=== PATIENT | female | born 1985 | race Caucasian/White ===

== ENCOUNTER 2017-01-22 17:16 | Emergency (ER) | payer BC, OTHER ==
[2017-01-22] MEDS ORDERED: Sodium Chloride 0.9% 1,000 ML IV ONE (17:43)
--- NOTE | 2017-01-22 17:59 | EDM.PDOC ---
ED HPI GENERAL MEDICAL PROBLEM - General Chief Complaint: 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 Problem Stated Complaint: LOW BACK PAIN Time Seen by Provider: 01/22/17 17:52 Source of Information: Reports: Patient History Limitations: Reports: No Limitations - History of Present Illness INITIAL COMMENTS - FREE TEXT/NARRATIVE: History of present illness: [32-year-old female comes in complaining of left-sided flank pain. Patient indicates that he is causing her nausea and difficulty with walking and the discomfort progressively worse K she had gone to an urgent care who thought possibly this could be a kidney stone that did an ultrasound that she has not been able to obtain results and the pain is getting worse. She comes into the ER to be evaluated] Review of systems: As per history of present illness and below otherwise all systems reviewed and negative. Past medical history: As per history of present illness and as reviewed below otherwise noncontributory. Surgical history: As per history of present illness and as reviewed below otherwise noncontributory. Social history: No reported history of drug or alcohol abuse. Family history: As per history of present illness and as reviewed below otherwise noncontributory. Physical exam: HEENT: Atraumatic, normocephalic, pupils reactive, negative for conjunctival pallor or scleral icterus, mucous membranes moist, throat clear, neck supple, nontender, trachea midline. Lungs: Clear to auscultation, breath sounds equal bilaterally, chest nontender. Heart: S1S2, regular, negative for clicks, rubs, or JVD. Abdomen: Soft, nondistended, nontender. Negative for masses or hepatosplenomegaly. Negative for costovertebral tenderness. Pelvis: Stable nontender. 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: Deferred. Rectal: Deferred. Extremities: Atraumatic, negative for cords or calf pain. Neurovascular unremarkable. Neuro: Awake, alert, oriented. Cranial nerves II through XII unremarkable. Cerebellum unremarkable. Motor and sensory unremarkable throughout. Exam nonfocal. Diagnostics: [CBC, CMP, lactic acid UA, hCG] Therapeutics: [IV fluid] Impression: [UTI] Plan: [Antibiotics] Definitive disposition and diagnosis as appropriate pending reevaluation and review of above. Left Low Back Pain Score (Numeric/FACES): 6 - Related Data Allergies Allergy/AdvReac Type Severity Reaction Status Date / Time No Known Allergies Allergy Verified 01/22/17 17:30 Home Meds: Home Meds . [No Known Home Meds] 01/22/17 [History] Past Medical History - Past Health History Medical/Surgical History: Denies Medical/Surgical History Social & Family History - Family History Family Medical History: Noncontributory - Tobacco Use Smoking Status *Q: Never Smoker - Recreational Drug Use Recreational Drug Use: No ED ROS GENERAL - Review of Systems Review Of Systems: See Below (History of present illness) ED EXAM, GENERAL - Physical Exam Exam: See Below (See history of present illness) Course - Vital Signs Last Recorded V/S: Last Vital Signs Temp 36.4 C 01/22/17 19:14 Pulse 84 01/22/17 19:14 Resp 16 01/22/17 19:14 BP 105/71 01/22/17 19:14 Pulse Ox 99 01/22/17 19:14 - Orders/Labs/Meds Orders: Active Orders 24 hr Category Date Time Status Abdomen Pelvis wo Cont [CT] Stat Exams 01/22/17 18:25 Taken Labs: Laboratory Tests 01/22/17 01/22/17 01/22/17 Range/Units 17:25 17:53 17:53 WBC 9.96 (4.0-11.0) K/uL RBC 4.89 (4.30-5.90) M/uL Hgb 15.2 (12.0-16.0) g/dL Hct 45.2 (36.0-46.0) % MCV 92.4 (80.0-98.0) fL MCH 31.1 (27.0-32.0) pg MCHC 33.6 (31.0-37.0) g/dL RDW Std Deviation 41.6 (28.0-62.0) fl RDW Coeff of Santino 12 (11.0-15.0) % Plt Count 320 (150-400) K/uL MPV 9.50 (7.40-12.00) fL Neut % (Auto) 66.6 (48.0-80.0) % Lymph % (Auto) 27.8 (16.0-40.0) % Elliott % (Auto) 4.5 (0.0-15.0) % Eos % (Auto) 0.9 (0.0-7.0) % Baso % (Auto) 0.2 (0.0-1.5) % Neut # (Auto) 6.6 H (1.4-5.7) K/uL Lymph # (Auto) 2.8 H (0.6-2.4) K/uL Elliott # (Auto) 0.5 (0.0-0.8) K/uL Eos # (Auto) 0.1 (0.0-0.7) K/uL Baso # (Auto) 0.0 (0.0-0.1) K/uL Nucleated RBC % 0.0 /100WBC Nucleated RBCs # 0 K/uL Lactate 0.8 (0.20-2.00) mmol/L Sodium (136-146) mmol/L Potassium (3.5-5.1) mmol/L Chloride (98-110) mmol/L Carbon Dioxide (21-31) mmol/L BUN (6.0-23.0) mg/dL Creatinine (0.6-1.5) mg/dL Est Cr Clr Drug Dosing mL/min Estimated GFR (MDRD) ml/min Glucose (60-110) mg/dL Calcium (8.8-10.8) mg/dL Total Bilirubin (0.1-1.5) mg/dL AST (5-40) IU/L ALT (8-54) IU/L Alkaline Phosphatase (40-150) Total Protein (6.0-8.0) g/dL Albumin (3.5-5.0) g/dL Globulin (2.0-3.5) g/dL Albumin/Globulin Ratio (1.3-2.8) HCG, Qual (NEG) Urine Color YELLOW Urine Appearance CLEAR Urine pH 5.5 (5.0-8.0) Ur Specific [place] <= 1.005 (1.001-1.035) Urine Protein NEGATIVE (NEGATIVE) mg/dL Urine Glucose (UA) NEGATIVE (NEGATIVE) mg/dL Urine Ketones NEGATIVE (NEGATIVE) mg/dL Urine Occult Blood TRACE-INTACT (NEGATIVE) Urine Nitrite NEGATIVE (NEGATIVE) Urine Bilirubin NEGATIVE (NEGATIVE) Urine Urobilinogen 0.2 (<2.0) EU/dL Ur Leukocyte Esterase TRACE (NEGATIVE) Urine RBC 0-1 (0-2/HPF) Urine WBC 0-1 (0-5/HPF) Ur Epithelial Cells MODERATE (NONE-FEW) Urine Bacteria OCCASIONAL (NEGATIVE) 01/22/17 01/22/17 Range/Units 17:53 17:53 WBC (4.0-11.0) K/uL RBC (4.30-5.90) M/uL Hgb (12.0-16.0) g/dL Hct (36.0-46.0) % MCV (80.0-98.0) fL MCH (27.0-32.0) pg MCHC (31.0-37.0) g/dL RDW Std Deviation (28.0-62.0) fl RDW Coeff of Santino (11.0-15.0) % Plt Count (150-400) K/uL MPV (7.40-12.00) fL Neut % (Auto) (48.0-80.0) % Lymph % (Auto) (16.0-40.0) % Elliott % (Auto) (0.0-15.0) % Eos % (Auto) (0.0-7.0) % Baso % (Auto) (0.0-1.5) % Neut # (Auto) (1.4-5.7) K/uL Lymph # (Auto) (0.6-2.4) K/uL Elliott # (Auto) (0.0-0.8) K/uL Eos # (Auto) (0.0-0.7) K/uL Baso # (Auto) (0.0-0.1) K/uL Nucleated RBC % /100WBC Nucleated RBCs # K/uL Lactate (0.20-2.00) mmol/L Sodium 140 (136-146) mmol/L Potassium 4.2 (3.5-5.1) mmol/L Chloride 105 (98-110) mmol/L Carbon Dioxide 26 (21-31) mmol/L BUN 15 (6.0-23.0) mg/dL Creatinine 0.9 (0.6-1.5) mg/dL Est Cr Clr Drug Dosing 74.23 mL/min Estimated GFR (MDRD) > 60.0 ml/min Glucose 111 H (60-110) mg/dL Calcium 10.0 (8.8-10.8) mg/dL Total Bilirubin 0.5 (0.1-1.5) mg/dL AST 20 (5-40) IU/L ALT 17 (8-54) IU/L Alkaline Phosphatase 43 (40-150) Total Protein 8.0 (6.0-8.0) g/dL Albumin 4.8 (3.5-5.0) g/dL Globulin 3.2 (2.0-3.5) g/dL Albumin/Globulin Ratio 1.5 (1.3-2.8) HCG, Qual NEGATIVE (NEG) Urine Color Urine Appearance Urine pH (5.0-8.0) Ur Specific [place] (1.001-1.035) Urine Protein (NEGATIVE) mg/dL Urine Glucose (UA) (NEGATIVE) mg/dL Urine Ketones (NEGATIVE) mg/dL Urine Occult Blood (NEGATIVE) Urine Nitrite (NEGATIVE) Urine Bilirubin (NEGATIVE) Urine Urobilinogen (<2.0) EU/dL Ur Leukocyte Esterase (NEGATIVE) Urine RBC (0-2/HPF) Urine WBC (0-5/HPF) Ur Epithelial Cells (NONE-FEW) Urine Bacteria (NEGATIVE) Meds: Medications Discontinued Medications Generic Name Dose Route Start Last Admin Trade Name Natalie PRN Reason Stop Dose Admin Sodium Chloride 1,000 mls @ 999 mls/hr 01/22/17 17:43 01/22/17 17:59 Normal Saline IV 01/22/17 18:43 999 mls/hr STAT ONE Administration Ketorolac Tromethamine 30 mg 01/22/17 18:24 01/22/17 18:32 Toradol IVPUSH 01/22/17 18:25 30 mg ONETIME ONE Administration Departure - Departure Time of Disposition: 20:04 Disposition: Home, Self-Care 01 Condition: Good Clinical Impression: UTI, Urinary tract infectious disease - Discharge Information Instructions: Urinary Tract Infection, Adult, [id number] Forms: ED Department Discharge Additional Instructions: The following information is given to patients seen in the emergency department who are being discharged to home. This information is to outline your options for follow-up care. We provide all patients seen in our emergency department with a follow-up referral. The need for follow-up, as well as the timing and circumstances, are variable depending upon the specifics of your emergency department visit. If you don't have a primary care physician on staff, we will provide you with a referral. We always advise you to contact your personal physician following an emergency department visit to inform them of the circumstance of the visit and for follow-up with them and/or the need for any referrals to a consulting specialist. The emergency department will also refer you to a specialist when appropriate. This referral assures that you have the opportunity for follow-up care with a specialist. All of these measure are taken in an effort to provide you with optimal care, which includes your follow-up. Under all circumstances we always encourage you to contact your private physician who remains a resource for coordinating your care. When calling for follow-up care, please make the office aware that this follow-up is from your recent emergency room visit. If for any reason you are refused follow-up, please contact the [facility] Emergency Department at and asked to speak to the emergency department charge nurse. Continue prescribed antibiotics, hydrate follow-up with primary care 1-2 days Return to ED as needed as discussed - My Orders Last 24 Hours: My Active Orders 01/22/17 18:25 Abdomen Pelvis wo Cont [CT] Stat - Assessment/Plan Last 24 Hours: My Active Orders 01/22/17 18:25 Abdomen Pelvis wo Cont [CT] Stat
[2017-01-22] MEDS ORDERED: Ketorolac 30 MG/ML SDV IVPUSH ONE (18:24)
[2017-01-22 18:28] LABS: CHLORIDE,CL 105 mmol/L (98-110); SODIUM,NA 140 mmol/L (136-146)
[2017-01-22 20:22] VITALS: BP 108/65
--- NOTE | 2017-01-23 16:34 | CT ---
EXAM DATE: 01/22/17 PATIENT'S AGE: 32 Patient: JO-ANN VALENCIA Facility: [place], [place] Site . Site : 1985 Study: CT Abdomen/Pelvis [id number]/6/2017 6:54:34 PM Ordering Physician: Doctor Farnsworth Final Report: INDICATION: LT FLANK PAIN TECHNIQUE: CT abdomen and pelvis without contrast. COMPARISON: None FINDINGS: Lower chest: Unremarkable. Liver: Unremarkable. Spleen: Unremarkable. Pancreas: Unremarkable. Gallbladder and bile ducts: Unremarkable. Kidneys: Unremarkable. No kidney or ureteral stones and no hydronephrosis. Adrenal glands: Unremarkable. GI tract: Moderate amount of stool. Appendix is normal. Vascular structures: Unremarkable. Lymph nodes: Unremarkable. Miscellaneous: Unremarkable. No free air or significant free fluid. Pelvic Organs: IUD in place. Bones: Scattered nonspecific benign appearing sclerotic bone lesions on the imaged proximal femurs bilaterally, acetabulum bilaterally, and right sacral ala. IMPRESSION: No acute abnormality of the abdomen and pelvis. Moderate amount of stool. Dictated by Bryan Smith MD @ 01/22/2017 7:29:54 PM Dictated by: Bryan Smith MD @ 01/22/2017 19:30:08 (Electronic Signature) Report Signed by Proxy. BEST
== END 2017-01-22 20:15 | disposition home or self-care (01) ==
LOC: MW.ED 17:16
DX: N39.0 Urinary tract infection, site not specified (principal)
CPT/HCPCS: 36415; 74176; 80053; 81001; 83605; 84703; 85025; 96361; 96374; 99284; J1885; J7040

== ENCOUNTER 2017-04-09 09:13 | Day surgery (SDC) | payer BC ==
[~2017-04-09 09:13] MED LIST: Lactated Ringers 1,000 ML IV SCH; Midazolam 1 MG/ML 2 ML SDV ONE; Propofol 200 MG/20 ML SDV ONE; Sodium Chloride 0.9% 10 ML Syringe FLUSH PRN; Sodium Chloride 0.9% 2.5 ML Syringe FLUSH PRN
--- NOTE | 2017-04-09 10:07 | PCM.PREANE ---
Preanesthetic Assessment - Anesthesia/Transfusion/Family Hx Anesthesia History: Prior Anesthesia Without Reaction Family History of Anesthesia Reaction: No Transfusion History: No Prior Transfusion(s) Intubation History: Unknown - Review of Systems General: No Symptoms Pulmonary: No Symptoms Cardiovascular: No Symptoms Gastrointestinal: No Symptoms Neurological: No Symptoms Other: Reports: None - Physical Assessment NPO Status Date: 04/09/17 NPO Status Time: 01:00 O2 Sat by Pulse Oximetry: 100 Respiratory Rate: 16 Vital Signs: Last Vital Signs Temp 37.1 C 04/09/17 09:55 Pulse 71 04/09/17 09:55 Resp 16 04/09/17 09:55 BP 100/69 04/09/17 09:55 Pulse Ox 100 04/09/17 09:55 Height: 1.6 m Weight: 60.781 kg ASA Class: 1 Mental Status: Alert & Oriented x3 Airway Class: Mallampati = 2 Dentition: Reports: Normal Dentition Thyro-Mental Finger Breadths: 3 Mouth Opening Finger Breadths: 3 ROM/Head Extension: Full Lungs: Clear to Auscultation, Normal Respiratory Effort Cardiovascular: Regular Rate, Regular Rhythm - Allergies Allergies/Adverse Reactions: Allergies Allergy/AdvReac Type Severity Reaction Status Date / Time No Known Allergies Allergy Verified 01/22/17 17:30 - Blood Blood Available: No - Anesthesia Plan Pre-Op Medication Ordered: None - Acknowledgements Anesthesia Type Planned: MAC Pt an Appropriate Candidate for the Planned Anesthesia: Yes Alternatives and Risks of Anesthesia Discussed w Pt/Guardian: Yes Pt/Guardian Understands and Agrees with Anesthesia Plan: Yes PreAnesthesia Questionnaire - Past Health History Medical/Surgical History: Denies Medical/Surgical History HEENT History: Reports: Other (See Below) Other HEENT History: wears glasses/contacts Gastrointestinal History: Reports: Hemorrhoids, Irritable Bowel Syndrome, Other (See Below) Other Gastrointestinal History: occasional heartburn 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: Psychiatric History: Reports: Anxiety - Past Surgical History Head Surgeries/Procedures: Reports: None HEENT Surgical History: Reports: Adenoidectomy, Naso-Sinus Surgery, Oral Surgery , Tonsillectomy GI Surgical History: Reports: Colonoscopy (at age 18) - SUBSTANCE USE Smoking Status *Q: Never Smoker Recreational Drug Use History: No - HOME MEDS Home Medications: Home Meds LORazepam [Ativan] 0.5 mg PO ASDIRECTED PRN 04/07/17 [History] - CURRENT (IN HOUSE) MEDS Current Meds: Current Medications Lactated Ringer's (Ringers, Lactated) 1,000 mls @ 125 mls/hr IV ASDIRECTED HANK Last Admin: 04/09/17 09:56 Dose: 125 mls/hr Sodium Chloride (Saline Flush) 10 ml FLUSH ASDIRECTED PRN PRN Reason: Keep Vein Open Sodium Chloride (Saline Flush) 2.5 ml FLUSH ASDIRECTED PRN PRN Reason: Keep Vein Open Discontinued Medications Lidocaine HCl (Xylocaine-Mpf 1%) Confirm Administered Dose 5 ml .ROUTE .STK-MED ONE Stop: 04/09/17 07:19 Midazolam HCl (Versed 1 Mg/Ml) Confirm Administered Dose 2 mg .ROUTE .STK-MED ONE Stop: 04/09/17 07:19 Propofol (Diprivan 20 Ml) Confirm Administered Dose 400 mg .ROUTE .STK-MED ONE Stop: 04/09/17 07:19
--- NOTE | 2017-04-09 11:02 | PCM.OPNOTE ---
- General Post-Op/Procedure Note Date of Surgery/Procedure: 04/09/17 Operative Procedure(s): Screening colon Findings: Grade 2 hemorrhoids Pre Op Diagnosis: Bright red bleeding per rectum Post-Op Diagnosis: Grade 2 hemorrhoids Anesthesia Technique: MAC Primary Surgeon: Marli Bowman Condition: Good
[2017-04-09 11:33] VITALS: BP 92/63
--- NOTE | 2017-04-09 19:13 | OR ---
SURGEON: MARLI BOWMAN MD DATE OF PROCEDURE: 04/09/2017 PREOPERATIVE DIAGNOSIS: Bright red bleeding per rectum. POSTOPERATIVE DIAGNOSIS: Grade 2 internal hemorrhoids. PROCEDURE PERFORMED: Diagnostic colonoscopy. ENDOSCOPIST: Dr. Marli Bowman. INSTRUMENT USED: Olympus colonoscope. ANESTHESIA: MAC. EXTENT OF EXAM: To the cecum. PREPARATION: Good. LIMITATIONS: None. INDICATION FOR EXAMINATION: The patient is a 32-year-old female with a strong family history of colon cancer, who presents with bright red bleeding per rectum. Given her family history, the decision was made to perform a diagnostic colonoscopy. We discussed the procedure as well as expected perioperative course. We discussed the risks, including bleeding, infection, damage to surrounding structures, including perforation. The patient verbalized understanding and wished to proceed. PROCEDURE IN DETAIL: The patient was brought to the endoscopy suite and placed on OR cart in left lateral decubitus position. A time-out was completed verifying the patient's name, age, date of , allergies, and procedure to be performed. Monitored anesthesia care was induced and continuous oxygen was provided via nasal cannula throughout the procedure. After adequate sedation was achieved, a digital rectal exam was performed. This exam was within normal limits. A well lubricated colonoscope was inserted into the rectum and advanced under direct visualization to the level of cecum. The cecum was identified by both visual and anatomic landmarks. A photograph was taken of the cecal cap as well with the scope retroflexed within the cecum. The scope was then straightened out and fully withdrawn while examining the color, texture, anatomy, and integrity of the mucosa from the cecum to the anal canal. The colon appeared normal. The scope was then brought into the rectum and retroflexed to allow visualization of the anal canal opening. The patient was noted to have hypertrophied hemorrhoidal tissue around the anal canal consistent with grade 2 internal hemorrhoids. The scope was then straightened out and withdrawn from the patient. Cecum to anus time was 7 minutes. The patient tolerated the procedure well and was taken to PACU in stable condition. ENDOSCOPIC DIAGNOSIS: Grade 2 hemorrhoids. RECOMMENDATIONS: Follow up in clinic in 2 weeks. ELVIS HOLLINS /[id number]
== END 2017-04-09 11:40 | disposition home or self-care (01) ==
LOC: MW.SDS 09:13
PROVIDERS: ATTEND Surgery
PROC: 0DJD8ZZ Inspection of Lower Intestinal Tract, Via Natural or Artificial Opening Endoscopic (ICD-10-PCS; principal; 2017-04-09)
DX: K64.1 Second degree hemorrhoids (principal); L90.5 Scar conditions and fibrosis of skin; Z79.899 Other long term (current) drug therapy; K58.9 Irritable bowel syndrome, unspecified; Z98.890 Other specified postprocedural states
CPT/HCPCS: 45378; 81025; J2250; J7120; J2704

== ENCOUNTER 2019-06-17 05:56 | Emergency (ER) | payer BC ==
[2019-06-17] MEDS ORDERED: Albuterol/Ipratropium 3.0-0.5 MG/3 ML Neb Soln ONE (05:59)
[2019-06-17] MEDS ORDERED: Albuterol/Ipratropium 3.0-0.5 MG/3 ML Neb Soln NEB ONE (06:01)
--- NOTE | 2019-06-17 06:17 | EDM.PDOC ---
ED HPI GENERAL MEDICAL PROBLEM - General Chief Complaint: Respiratory Problem Stated Complaint: TROUBLE BREATHING, 26 WKS PREG Time Seen by Provider: 06/17/19 06:14 - History of Present Illness INITIAL COMMENTS - FREE TEXT/NARRATIVE: HISTORY AND PHYSICAL: History of present illness: Patient 34-year-old white female is 26 weeks presents with substernal cough and shortness of breath she states she's had some coughing over last several weeks with the shortness of breath became worse tonight. There's been no fever chills nausea vomiting she does report asthma in childhood denies as adult. She denies abdominal pain cramping or vaginal bleeding Review of systems: As per history of present illness and below otherwise all systems reviewed and negative. Past medical history: As per history of present illness and as reviewed below otherwise noncontributory. Surgical history: As per history of present illness and as reviewed below otherwise noncontributory. Social history: No reported history of drug or alcohol abuse. Family history: As per history of present illness and as reviewed below otherwise noncontributory. Physical exam: HEENT: Atraumatic, normocephalic, pupils reactive, negative for conjunctival pallor or scleral icterus, mucous membranes moist, throat clear, neck supple, nontender, trachea midline. Lungs: Diminished, breath sounds equal bilaterally, chest nontender. Heart: S1S2, regular, negative for clicks, rubs, or JVD. Abdomen: Soft, gravid uterus consistent with dates, nontender. Negative for masses or hepatosplenomegaly. Negative for costovertebral tenderness. Pelvis: Stable nontender. 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: Deferred. Rectal: Deferred. Extremities: Atraumatic, negative for cords or calf pain. Neurovascular unremarkable. Neuro: Awake, alert, oriented. Cranial nerves II through XII unremarkable. Cerebellum unremarkable. Motor and sensory unremarkable throughout. Exam nonfocal. Diagnostics: CBC CMP influenza screen chest x-ray heart Therapeutics: Albuterol ipratropium nebulizer Impression: #1 tracheobronchitis #2 26 week intrauterine Definitive disposition and diagnosis as appropriate pending reevaluation and review of above. - Related Data Allergies Allergy/AdvReac Type Severity Reaction Status Date / Time No Known Allergies Allergy Verified 01/22/17 17:30 Home Meds: Home Meds Pnv No.103/Folic/Om3s/Fish Oil [ Gummies] 1 each PO DAILY 06/17/19 [ History] Past Medical History - Past Health History Medical/Surgical History: Denies Medical/Surgical History HEENT History: Reports: Other (See Below) Other HEENT History: wears glasses/contacts Cardiovascular History: Reports: None Respiratory History: Reports: None Gastrointestinal History: Reports: Hemorrhoids, Irritable Bowel Syndrome, Other (See Below) Other Gastrointestinal History: occasional heartburn 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 History: Reports: None 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: 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 History: Reports: None Psychiatric History: Reports: Anxiety Endocrine/Metabolic History: Reports: None - Infectious Disease History Infectious Disease History: Reports: None - Past Surgical History Head Surgeries/Procedures: Reports: None HEENT Surgical History: Reports: Adenoidectomy, Naso-Sinus Surgery, Oral Surgery , Tonsillectomy GI Surgical History: Reports: Colonoscopy Social & Family History - Family History Family Medical History: Noncontributory - Tobacco Use Smoking Status *Q: Never Smoker - Recreational Drug Use Recreational Drug Use: No ED ROS GENERAL - Review of Systems Review Of Systems: Comprehensive ROS is negative, except as noted in HPI. ED EXAM, GENERAL - Physical Exam Exam: See Below (See dictation) Course - Vital Signs Last Recorded V/S: Last Vital Signs Temp 36.4 C 06/17/19 06:08 Pulse 84 06/17/19 06:08 Resp 20 06/17/19 06:08 BP 114/70 06/17/19 06:08 Pulse Ox 100 06/17/19 06:08 - Orders/Labs/Meds Orders: Active Orders 24 hr Category Date Time Status RT Aerosol Therapy [RC] ASDIRECTED Care 06/17/19 06:01 Active COMPREHENSIVE METABOLIC PN,CMP [CHEM] Stat Lab 06/17/19 06:32 Received INFLUENZA A+B AG SCREEN [RM] Stat Lab 06/17/19 06:04 Received Labs: Laboratory Tests 06/17/19 Range/Units 06:32 WBC 6.95 (4.0-11.0) K/uL RBC 3.88 L (4.30-5.90) M/uL Hgb 12.0 (12.0-16.0) g/dL Hct 37.5 (36.0-46.0) % MCV 96.6 (80.0-98.0) fL MCH 30.9 (27.0-32.0) pg MCHC 32.0 (31.0-37.0) g/dL RDW Std Deviation 47.3 (28.0-62.0) fl RDW Coeff of Santino 14 (11.0-15.0) % Plt Count 183 (150-400) K/uL MPV 9.70 (7.40-12.00) fL Neut % (Auto) 58.7 (48.0-80.0) % Lymph % (Auto) 28.1 (16.0-40.0) % [place] % (Auto) 11.5 (0.0-15.0) % Eos % (Auto) 1.6 (0.0-7.0) % Baso % (Auto) 0.1 (0.0-1.5) % Neut # (Auto) 4.1 (1.4-5.7) K/uL Lymph # (Auto) 2.0 (0.6-2.4) K/uL [place] # (Auto) 0.8 (0.0-0.8) K/uL Eos # (Auto) 0.1 (0.0-0.7) K/uL Baso # (Auto) 0.0 (0.0-0.1) K/uL Nucleated RBC % 0.0 /100WBC Nucleated RBCs # 0 K/uL Meds: Medications Discontinued Medications Generic Name Dose Route Start Last Admin Trade Name Freq PRN Reason Stop Dose Admin Albuterol/Ipratropium Confirm 06/17/19 05:59 06/17/19 06:03 Duoneb 3.0-0.5 Mg/3 Ml Administered 06/17/19 06:00 Not Given Dose 3 ml .ROUTE .STK-MED ONE Albuterol/Ipratropium 3 ml 06/17/19 06:01 06/17/19 06:03 Duoneb 3.0-0.5 Mg/3 Ml NEB 06/17/19 06:02 3 ml ONETIME ONE Administration Departure - Departure Time of Disposition: 06:53 Disposition: Home, Self-Care 01 Condition: Good Clinical Impression: Tracheobronchitis, Second trimester - Discharge Information Forms: ED Department Discharge Additional Instructions: The following information is given to patients seen in the emergency department who are being discharged to home. This information is to outline your options for follow-up care. We provide all patients seen in our emergency department with a follow-up referral. The need for follow-up, as well as the timing and circumstances, are variable depending upon the specifics of your emergency department visit. If you don't have a primary care physician on staff, we will provide you with a referral. We always advise you to contact your personal physician following an emergency department visit to inform them of the circumstance of the visit and for follow-up with them and/or the need for any referrals to a consulting specialist. The emergency department will also refer you to a specialist when appropriate. This referral assures that you have the opportunity for followup care with a specialist. All of these measure are taken in an effort to provide you with optimal care, which includes your followup. Under all circumstances we always encourage you to contact your private physician who remains a resource for coordinating your care. When calling for followup care, please make the office aware that this follow-up is from your recent emergency room visit. If for any reason you are refused follow-up, please contact the [facility] emergency department at and asked to speak to the emergency department charge nurse. Z-Huber Medrol albuterol as prescribed follow-up primary medical doctor as needed as discussed and return as needed as discussed - My Orders Last 24 Hours: My Active Orders 06/17/19 06:01 RT Aerosol Therapy [RC] ASDIRECTED 06/17/19 06:04 INFLUENZA A+B AG SCREEN [RM] Stat 06/17/19 06:32 COMPREHENSIVE METABOLIC PN,CMP [CHEM] Stat - Assessment/Plan Last 24 Hours: My Active Orders 06/17/19 06:01 RT Aerosol Therapy [RC] ASDIRECTED 06/17/19 06:04 INFLUENZA A+B AG SCREEN [RM] Stat 06/17/19 06:32 COMPREHENSIVE METABOLIC PN,CMP [CHEM] Stat
--- NOTE | 2019-06-17 06:47 | CR ---
INDICATION: Shortness of breath TECHNIQUE: Chest 1 view COMPARISON: None FINDINGS: Cardiovascular and mediastinum: Heart size and vasculature are normal in caliber and appearance. Lungs and pleural spaces: Lungs are clear. No sign of infiltrate or mass. No sign of pleural effusion. No pneumothorax. Bones and soft tissues: No significant findings. IMPRESSION: Normal chest. Dictated by Jaron Watkins MD @ Jun 17 2019 6:44AM Signed by Dr. Jaron Watkins @ Jun 17 2019 6:45AM
[2019-06-17 07:01] LABS: BLOOD UREA NITROGEN,BUN 8 mg/dL (7.0-18.0); CHLORIDE,CL 104 mmol/L (98-107); GLUCOSE RANDOM 103 mg/dL (74-106); POTASSIUM,K 3.5 mmol/L (3.5-5.1); SODIUM,NA 139 mmol/L (136-145)
[2019-06-17 07:44] VITALS: BP 106/58; PULSE 100
== END 2019-06-17 07:29 | disposition home or self-care (01) ==
LOC: MW.ED 05:56
DX: O99.512 Diseases of the respiratory system complicating pregnancy, second trimester (principal); J40 Bronchitis, not specified as acute or chronic; Z3A.26 26 weeks gestation of pregnancy
CPT/HCPCS: 36415; 71045; 71045-26; 80053; 85025; 87804; 94640; 99283; 99285-25; J7620-GY

== ENCOUNTER 2019-09-19 05:14 | Inpatient (IN) | payer BC ==
[2019-09-19] MEDS ORDERED: Nalbuphine 10 MG/1 ML Vial IVPUSH PRN (05:45)
[2019-09-19] MEDS ORDERED: Water For Irrigation,Sterile 1,000 ML Container IRR PRN (05:45)
[2019-09-19] MEDS ORDERED: Carboprost Tromethamine 250 MCG/1 ML Amp IM PRN (05:45)
[2019-09-19] MEDS ORDERED: Oxytocin/0.9 % Sodium Chloride 30 UNIT/500 ML BAG IV SCH ×2 (05:45→07:00)
[2019-09-19] MEDS ORDERED: Sodium Chloride 0.9% 2.5 ML Syringe FLUSH PRN (05:45)
[2019-09-19] MEDS ORDERED: Sodium Chloride 0.9% 10 ML SDV IV PRN (05:45)
[2019-09-19] MEDS ORDERED: Misoprostol 200 MCG Tab PO PRN (05:45)
[2019-09-19] MEDS ORDERED: Butorphanol 1 MG/ML SDV IVPUSH PRN (05:45)
[2019-09-19] MEDS ORDERED: Lidocaine 1% 50 ML MDV INJECT PRN (05:45)
[2019-09-19] MEDS ORDERED: Methylergonovine 0.2 MG/1 ML Amp IM PRN (05:45)
[2019-09-19] MEDS ORDERED: Sodium Chloride 0.9% 10 ML Syringe FLUSH PRN (05:45)
[2019-09-19] MEDS ORDERED: Tranexamic Acid 1,000 MG in Sodium Chloride 0.9% 100 ML IV PRN (05:45)
[2019-09-19] MEDS ORDERED: Ampicillin 2 GM in Sodium Chloride 0.9% 100 ML IV ONE (06:00)
[2019-09-19] MEDS: Lactated Ringers 1,000 ML IV SCH ×3 (06:19→15:22)
--- NOTE | 2019-09-19 06:47 | US ---
Limited obstetrical ultrasound: Multiple real-time images were obtained for position. presentation: Cephalic Heart rate: 137 BPM Amniotic fluid: LUIS 10.14 cm Impression: 1. Cephalic presentation. Diagnostic code #1 This report was dictated in [place] Standard Time
[2019-09-19] MEDS ORDERED: Terbutaline 1 MG/ML SDV SUBCUT PRN (06:58)
[2019-09-19] MEDS ORDERED: Ampicillin 1 GM in Sodium Chloride 0.9% 50 ML IV SCH ×2 (10:00→10:30)
[2019-09-19] MEDS ORDERED: Ampicillin 1 GM Vial ONE (10:37)
[2019-09-19] MEDS: Ampicillin 1 GM in Sodium Chloride 0.9% 50 ML IV SCH ×3 (10:48→18:22)
[2019-09-19] MEDS ORDERED: ePHEDrine 50 MG/ML SDV ONE (15:03)
--- NOTE | 2019-09-19 15:19 | PCM.PREANE ---
Preanesthetic Assessment - Anesthesia/Transfusion/Family Hx Anesthesia History: Prior Anesthesia Without Reaction Transfusion History: No Prior Transfusion(s) Intubation History: Unknown - Review of Systems General: No Symptoms Pulmonary: No Symptoms Cardiovascular: No Symptoms Gastrointestinal: No Symptoms Neurological: No Symptoms Other: Reports: None - Physical Assessment Height: 5 ft 2.75 in Weight: 75.75 kg ASA Class: 2 Mental Status: Alert & Oriented x3 Airway Class: Mallampati = 2 Dentition: Reports: Normal Dentition Thyro-Mental Finger Breadths: 3 Mouth Opening Finger Breadths: 3 ROM/Head Extension: Full Lungs: Clear to Auscultation, Normal Respiratory Effort Cardiovascular: Regular Rate, Regular Rhythm - Lab Values: Laboratory Last Values WBC 6.21 K/uL (4.0-11.0) 09/19/19 06:25 RBC 3.70 M/uL (4.30-5.90) L 09/19/19 06:25 Hgb 11.4 g/dL (12.0-16.0) L 09/19/19 06:25 Hct 35.5 % (36.0-46.0) L 09/19/19 06:25 MCV 95.9 fL (80.0-98.0) 09/19/19 06:25 MCH 30.8 pg (27.0-32.0) 09/19/19 06:25 MCHC 32.1 g/dL (31.0-37.0) 09/19/19 06:25 RDW Std Deviation 49.2 fl (28.0-62.0) 09/19/19 06:25 RDW Coeff of Santino 14 % (11.0-15.0) 09/19/19 06:25 Plt Count 195 K/uL (150-400) 09/19/19 06:25 MPV 9.70 fL (7.40-12.00) 09/19/19 06:25 Nucleated RBC % 0.0 /100WBC 09/19/19 06:25 Nucleated RBCs # 0 K/uL 09/19/19 06:25 Blood Type A NEGATIVE 09/19/19 06:25 Antibody Screen POSITIVE 09/19/19 06:25 Antibody Identification Anti-D 09/19/19 06:25 - Allergies Allergies/Adverse Reactions: Allergies Allergy/AdvReac Type Severity Reaction Status Date / Time No Known Allergies Allergy Verified 01/22/17 17:30 - Anesthesia Plan Free Text/Narrative:: Continuous Labor Epidural - Acknowledgements Anesthesia Type Planned: Epidural Pt an Appropriate Candidate for the Planned Anesthesia: Yes Alternatives and Risks of Anesthesia Discussed w Pt/Guardian: Yes Pt/Guardian Understands and Agrees with Anesthesia Plan: Yes PreAnesthesia Questionnaire - Past Health History Medical/Surgical History: Denies Medical/Surgical History HEENT History: Reports: Impaired Vision, Other (See Below) Other HEENT History: wears glasses/contacts Cardiovascular History: Reports: None Respiratory History: Reports: None Gastrointestinal History: Reports: Hemorrhoids, Irritable Bowel Syndrome, Other (See Below) Other Gastrointestinal History: occasional heartburn 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 History: Reports: None 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 LMP (Approximate): 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 History: Reports: None Neurological History: Reports: Concussion Psychiatric History: Reports: Anxiety, Depression Endocrine/Metabolic History: Reports: None Hematologic History: Reports: None Immunologic History: Reports: None Oncologic (Cancer) History: Reports: None Dermatologic History: Reports: None - Infectious Disease History Infectious Disease History: Reports: Chicken Pox, Human Papilloma Virus (HPV), Influenza, Mononucleosis - Past Surgical History Head Surgeries/Procedures: Reports: None HEENT Surgical History: Reports: Adenoidectomy, Naso-Sinus Surgery, Oral Surgery , Tonsillectomy GI Surgical History: Reports: Colonoscopy - SUBSTANCE USE Smoking Status *Q: Never Smoker Second Hand Smoke Exposure: No Recreational Drug Use History: No - HOME MEDS Home Medications: Home Meds Pnv No.103/Folic/Om3s/Fish Oil [ Gummies] 1 each PO DAILY 06/17/19 [ History] Calcium Carb, Citrate/Vit D3 [Calcium + D3 ER Tablet] 1 tab PO DAILY 09/19/19 [ History] Cholecalciferol (Vitamin D3) [Vitamin D3] 1 tab PO DAILY 09/19/19 [History] Iron,Carbonyl/Ascorbic Acid [Iron 100-Vitamin C Tablet] 1 each PO DAILY [History] L.acidoph,Paracasei, B.lactis [Probiotic] 1 tab PO DAILY 09/19/19 [History] Magnesium Amino Acid Chelate [Magnesium] 1 tab PO DAILY 09/19/19 [History] - CURRENT (IN HOUSE) MEDS Current Meds: Current Medications Butorphanol Tartrate (Stadol) 1 mg IVPUSH Q1H PRN PRN Reason: Pain Carboprost Tromethamine (Hemabate Ds) 250 mcg IM ASDIRECTED PRN PRN Reason: Post Hemorrhage Lactated Ringer's (Ringers, Lactated) 1,000 mls @ 150 mls/hr IV ASDIRECTED HANK Last Admin: 09/19/19 14:19 Dose: 999 mls/hr Oxytocin/Sodium Chloride (Oxytocin 30 Unit/500 Ml-Ns) 30 unit in 500 mls @ 500 mls/hr IV TITRATE HANK Tranexamic Acid 1,000 mg/ (Sodium Chloride) 110 mls @ 660 mls/hr IV ONETIME PRN PRN Reason: Bleeding Oxytocin/Sodium Chloride (Oxytocin 30 Unit/500 Ml-Ns) 30 unit in 500 mls @ 2 mls/hr IV TITRATE HANK; Protocol Last Titration: 09/19/19 13:03 Dose: 18 munits/min, 18 mls/hr Ampicillin Sodium 1 gm/ Sodium (Chloride) 50 mls @ 100 mls/hr IV Q4H [facility] Last Admin: 09/19/19 14:45 Dose: 100 mls/hr Lidocaine HCl (Xylocaine 1%) 50 ml INJECT ONETIME PRN PRN Reason: Laceration repair Methylergonovine Maleate (Methergine) 0.2 mg IM ASDIRECTED PRN PRN Reason: Post Hemorrhage Misoprostol (Cytotec) 200 mcg PO ONETIME PRN PRN Reason: Post Hemorrhage Nalbuphine HCl (Nubain) 10 mg IVPUSH Q1H PRN PRN Reason: Pain (severe 7-10) Sodium Chloride (Saline Flush) 10 ml FLUSH ASDIRECTED PRN PRN Reason: Keep Vein Open Sodium Chloride (Saline Flush) 2.5 ml FLUSH ASDIRECTED PRN PRN Reason: Keep Vein Open Sodium Chloride (Normal Saline) 10 ml IV ASDIRECTED PRN PRN Reason: IV Use Sterile Water (Sterile Water For Irrigation) 1,000 ml IRR ASDIRECTED PRN PRN Reason: delivery Terbutaline Sulfate (Brethine) 0.25 mg SUBCUT ASDIRECTED PRN PRN Reason: Tacysystole Discontinued Medications Ampicillin Sodium (Ampicillin) Confirm Administered Dose 1 gm .ROUTE .STK-MED ONE Stop: 09/19/19 10:38 Ephedrine Sulfate (Ephedrine Sulfate) Confirm Administered Dose 50 mg .ROUTE .STK-MED ONE Stop: 09/19/19 15:04 Ampicillin Sodium 2 gm/ Sodium (Chloride) 100 mls @ 200 mls/hr IV ONETIME ONE Stop: 09/19/19 06:29 Last Admin: 09/19/19 06:19 Dose: 200 mls/hr Ampicillin Sodium 1 gm/ Sodium (Chloride) 50 mls @ 100 mls/hr IV Q4H HANK Ampicillin Sodium 1 gm/ Sodium (Chloride) 50 mls @ 100 mls/hr IV Q4H HANK Fentanyl/Bupivacaine HCl (Uqhzryws-Wbjls-Yo 2 Mcg/Ml-0.125%) Confirm Administered Dose 100 mls @ as directed .ROUTE .ST-MED ONE Stop: 09/19/19 14:20
[2019-09-19] MEDS ORDERED: Lanolin 100% Cream 7 GM Tube TOP PRN (21:39)
[2019-09-19] MEDS ORDERED: Benzocaine/Menthol 20%-0.5% Spray 78 GM Cannister TOP PRN (21:39)
[2019-09-19] MEDS ORDERED: Bisacodyl 10 MG Supp RECTAL PRN (21:39)
[2019-09-19] MEDS ORDERED: Docusate Sodium 100 MG Cap PO PRN (21:39)
[2019-09-19] MEDS ORDERED: Witch Hazel Medicated Pads 40/Jar TOP PRN (21:39)
[2019-09-19] MEDS ORDERED: oxyCODONE 5 MG Tab PO PRN (21:39)
[2019-09-19] MEDS ORDERED: Acetaminophen 500 MG Tab PO PRN (21:39)
--- NOTE | 2019-09-19 21:45 | PCM.DEL ---
L & D Note - General Info Date of Service: 09/19/19 Mother's Due Date: 09/24/19 - Delivery Note Labor: Induced by Oxytocin Delivery Outcome: Stillbirth Delivery Method: Spontaneous Vaginal Delivery-Single Presentation: Vertex Nuchal Cord: None Anesthesia Type: Epidural Amniotic Fluid Description: Clear Episiotomy Type: None Laceration: Sulcus (left) Suture type: Vicryl Suture size: 2-0 Placenta: Intact, Spontaneous Cord: 3 Vessels Resuscitation Needed: No Score 1 min: 8 Score 5 min: 9 - General Info Date of Service: 09/19/19 - Patient Data Weight - Most Recent: 75.75 kg Lab Results Last 24 Hours: Laboratory Results - last 24 hr 09/19/19 09/19/19 Range/Units 06:25 06:25 WBC 6.21 (4.0-11.0) K/uL RBC 3.70 L (4.30-5.90) M/uL Hgb 11.4 L (12.0-16.0) g/dL Hct 35.5 L (36.0-46.0) % MCV 95.9 (80.0-98.0) fL MCH 30.8 (27.0-32.0) pg MCHC 32.1 (31.0-37.0) g/dL RDW Std Deviation 49.2 (28.0-62.0) fl RDW Coeff of Santino 14 (11.0-15.0) % Plt Count 195 (150-400) K/uL MPV 9.70 (7.40-12.00) fL Nucleated RBC % 0.0 /100WBC Nucleated RBCs # 0 K/uL Blood Type A NEGATIVE Antibody Screen POSITIVE Antibody Identification Anti-D Med Orders - Current: Current Medications Acetaminophen (Tylenol Extra Strength) 1,000 mg PO Q6H PRN PRN Reason: Pain Benzocaine/Menthol (Dermoplast Pain Relief 20%-0.5% Waldron) 78 gm TOP ASDIRECTED PRN PRN Reason: Perineal Comfort Measure Bisacodyl (Dulcolax) 10 mg RECTAL ONETIME PRN PRN Reason: Constipation Butorphanol Tartrate (Stadol) 1 mg IVPUSH Q1H PRN PRN Reason: Pain Carboprost Tromethamine (Hemabate Ds) 250 mcg IM ASDIRECTED PRN PRN Reason: Post Hemorrhage Docusate Sodium (Colace) 100 mg PO BID PRN PRN Reason: Constipation Emollient Ointment (Lansinoh Hpa) 0 gm TOP ASDIRECTED PRN PRN Reason: Sore Nipples Lactated Ringer's (Ringers, Lactated) 1,000 mls @ 150 mls/hr IV ASDIRECTED HANK Last Admin: 09/19/19 15:22 Dose: 150 mls/hr Oxytocin/Sodium Chloride (Oxytocin 30 Unit/500 Ml-Ns) 30 unit in 500 mls @ 500 mls/hr IV TITRATE HANK Tranexamic Acid 1,000 mg/ (Sodium Chloride) 110 mls @ 660 mls/hr IV ONETIME PRN PRN Reason: Bleeding Oxytocin/Sodium Chloride (Oxytocin 30 Unit/500 Ml-Ns) 30 unit in 500 mls @ 2 mls/hr IV TITRATE [facility]; Protocol Last Titration: 09/19/19 18:23 Dose: 26 munits/min, 26 mls/hr Ampicillin Sodium 1 gm/ Sodium (Chloride) 50 mls @ 100 mls/hr IV Q4H [facility] Last Admin: 09/19/19 18:22 Dose: 100 mls/hr Ibuprofen (Motrin) 800 mg PO Q8H PRN PRN Reason: Pain Lidocaine HCl (Xylocaine 1%) 50 ml INJECT ONETIME PRN PRN Reason: Laceration repair Methylergonovine Maleate (Methergine) 0.2 mg IM ASDIRECTED PRN PRN Reason: Post Hemorrhage Misoprostol (Cytotec) 200 mcg PO ONETIME PRN PRN Reason: Post Hemorrhage Nalbuphine HCl (Nubain) 10 mg IVPUSH Q1H PRN PRN Reason: Pain (severe 7-10) Oxycodone HCl (Oxycodone) 5 mg PO Q2H PRN PRN Reason: Pain Sodium Chloride (Saline Flush) 10 ml FLUSH ASDIRECTED PRN PRN Reason: Keep Vein Open Sodium Chloride (Saline Flush) 2.5 ml FLUSH ASDIRECTED PRN PRN Reason: Keep Vein Open Sodium Chloride (Normal Saline) 10 ml IV ASDIRECTED PRN PRN Reason: IV Use Sterile Water (Sterile Water For Irrigation) 1,000 ml IRR ASDIRECTED PRN PRN Reason: delivery Terbutaline Sulfate (Brethine) 0.25 mg SUBCUT ASDIRECTED PRN PRN Reason: Tacysystole [place] (Tucks) 1 pad TOP ASDIRECTED PRN PRN Reason: comfort care Discontinued Medications Ampicillin Sodium (Ampicillin) Confirm Administered Dose 1 gm .ROUTE .STK-MED ONE Stop: 09/19/19 10:38 Ephedrine Sulfate (Ephedrine Sulfate) Confirm Administered Dose 50 mg .ROUTE .STK-MED ONE Stop: 09/19/19 15:04 Ampicillin Sodium 2 gm/ Sodium (Chloride) 100 mls @ 200 mls/hr IV ONETIME ONE Stop: 09/19/19 06:29 Last Admin: 09/19/19 06:19 Dose: 200 mls/hr Ampicillin Sodium 1 gm/ Sodium (Chloride) 50 mls @ 100 mls/hr IV Q4H [facility] Ampicillin Sodium 1 gm/ Sodium (Chloride) 50 mls @ 100 mls/hr IV Q4H [facility] Fentanyl/Bupivacaine HCl (Rhgafzan-Ngckc-Yz 2 Mcg/Ml-0.125%) Confirm Administered Dose 100 mls @ as directed .ROUTE .STK-MED ONE Stop: 09/19/19 14:20 - Problem List & Annotations (1) Vaginal delivery SNOMED Code(s): 899964318 Code(s): O80 - ENCOUNTER FOR FULL-TERM UNCOMPLICATED DELIVERY Status: Acute Current Visit: No - Problem List Review Problem List Initiated/Reviewed/Updated: Yes - My Orders Last 24 Hours: My Active Orders 09/19/19 05:45 Patient Status [ADT] Routine May Shower [RC] ASDIRECTED Notify Provider [RC] PRN Up ad Pilar [RC] ASDIRECTED Vital Signs [RC] PER UNIT ROUTINE Butorphanol [Stadol] 1 mg IVPUSH Q1H PRN Carboprost Tromethamine [Hemabate DS] 250 mcg IM ASDIRECTED PRN Lactated Ringers [Ringers, Lactated] 1,000 ml IV ASDIRECTED Lidocaine 1% [Xylocaine 1%] 50 ml INJECT ONETIME PRN Methylergonovine [Methergine] 0.2 mg IM ASDIRECTED PRN Nalbuphine [Nubain] 10 mg IVPUSH Q1H PRN Oxytocin/0.9 % Sodium Chloride [Oxytocin 30 Unit/500 ML-NS] 30 unit in 500 ml IV TITRATE Sodium Chloride 0.9% [Normal Saline] 10 ml IV ASDIRECTED PRN Sodium Chloride 0.9% [Saline Flush] 10 ml FLUSH ASDIRECTED PRN Sodium Chloride 0.9% [Saline Flush] 2.5 ml FLUSH ASDIRECTED PRN Tranexamic Acid [Cyklokapron] 1,000 mg Sodium Chloride 0.9% [Normal Saline] 100 ml IV ONETIME Water For Irrigation,Sterile [Sterile Water for Irrigation] 1,000 ml IRR ASDIRECTED PRN miSOPROStoL [Cytotec] 200 mcg PO ONETIME PRN Scalp Electrode [WOMSER] Per Unit Routine Peripheral IV Insertion Adult [OM.PC] Routine Resuscitation Status Routine 09/19/19 06:25 RPR (SYPHILIS SERO) W/ RFLX [REF] Routine 09/19/19 06:58 Terbutaline [Brethine] 0.25 mg SUBCUT ASDIRECTED PRN 09/19/19 06:59 Bedrest Bathroom Privileges [RC] ASDIRECTED Communication Order [RC] ASDIRECTED 09/19/19 07:00 Oxytocin/0.9 % Sodium Chloride [Oxytocin 30 Unit/500 ML-NS] 30 unit in 500 ml IV TITRATE Medication Administration Instruction [OM.PC] Q3H 09/19/19 10:39 Ampicillin 1 gm Sodium Chloride 0.9% [Normal Saline] 50 ml IV Q4H 09/19/19 21:39 Patient Status [ADT] Routine May Shower [RC] ASDIRECTED Notify Provider Vital Signs [RC] ASDIRECTED Up ad Pilar [RC] ASDIRECTED Vital Signs [RC] PER UNIT ROUTINE RHIG WORKUP, [BBK] Routine Acetaminophen [Tylenol Extra Strength] 1,000 mg PO Q6H PRN Benzocaine/Menthol [Dermoplast Pain Relief 20%-0.5% Waldron] 78 gm TOP ASDIRECTED PRN Docusate Sodium [Colace] 100 mg PO BID PRN Ibuprofen [Motrin] 800 mg PO Q8H PRN Lanolin [Lansinoh HPA] See Dose Instructions TOP ASDIRECTED PRN bisacodyL [Dulcolax] 10 mg RECTAL ONETIME PRN oxyCODONE 5 mg PO Q2H PRN witch Sami [Tucks] 1 pad TOP ASDIRECTED PRN Assess Lochia [WOMSER] Per Unit Routine Assess Uterine Involution [WOMSER] Per Unit Routine Breast Pump [WOMSER] Per Unit Routine DVT/VTE Prophylaxis Reflex [OM.PC] Routine Peripheral IV Discontinue [OM.PC] Routine 09/19/19 21:40 Cooling Warming Measures [RC] ASDIRECTED VTE/DVT Education [RC] PER UNIT ROUTINE Ice Therapy [OM.PC] Per Unit Routine Perineal Care [OM.PC] Per Unit Routine Sitz Bath [OM.PC] Per Unit Routine 09/19/19 Breakfast Clear Liquid Diet [DIET] 09/19/19 Dinner Regular Diet [DIET] 09/20/19 05:11 HEMOGLOBIN/HEMATOCRIT,HH [HEME] Timed - Assessment Assessment:: 34yo s/p at 39w2d - Plan Plan:: Admit to unit for routine care. RhIg studies due to Rh negative patient; blood type pending. GBS positive, received adequate treatment with Ampicillin in labor.
[2019-09-20] MEDS: Ibuprofen 800 MG Tab PO PRN ×2 (06:22→14:26)
--- NOTE | 2019-09-20 08:10 | PCM.PNPP ---
- General Info Date of Service: 09/20/19 Subjective Update: Patient without complaints this morning. going well. Functional Status: Reports: Pain Controlled, Tolerating Diet, Ambulating, Urinating - Review of Systems General: Reports: No Symptoms HEENT: Reports: No Symptoms Pulmonary: Reports: No Symptoms Cardiovascular: Reports: No Symptoms Gastrointestinal: Reports: No Symptoms 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: Reports: No Symptoms 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: Reports: No Symptoms Skin: Reports: No Symptoms Neurological: Reports: No Symptoms Psychiatric: Reports: No Symptoms - Patient Data Vital Signs - Most Recent: Last Vital Signs Temp 36.3 C 09/20/19 04:30 Pulse 78 09/20/19 04:30 Resp 16 09/20/19 04:30 BP 98/44 L 09/20/19 04:30 Pulse Ox 97 09/20/19 04:30 Weight - Most Recent: 75.75 kg I&O - Last 24 Hours: Intake & Output 09/19/19 09/20/19 09/20/19 22:59 06:59 14:59 Intake Total 2 Balance 2 Lab Results - Last 24 Hours: Laboratory Results - last 24 hr 09/19/19 09/20/19 Range/Units 22:12 05:16 Hgb 9.9 L (12.0-16.0) g/dL Hct 30.9 L (36.0-46.0) % Screen NEGATIVE (NEGATIVE) RhIG Candidate? YES Rhogam Indicated YES, BABY RH POS H Med Orders - Current: Current Medications Acetaminophen (Tylenol Extra Strength) 1,000 mg PO Q6H PRN PRN Reason: Pain Last Admin: 09/20/19 00:14 Dose: 500 mg Benzocaine/Menthol (Dermoplast Pain Relief 20%-0.5% Wilson) 78 gm TOP ASDIRECTED PRN PRN Reason: Perineal Comfort Measure Last Admin: 09/20/19 00:13 Dose: 1 applic Bisacodyl (Dulcolax) 10 mg RECTAL ONETIME PRN PRN Reason: Constipation Butorphanol Tartrate (Stadol) 1 mg IVPUSH Q1H PRN PRN Reason: Pain Carboprost Tromethamine (Hemabate Ds) 250 mcg IM ASDIRECTED PRN PRN Reason: Post Hemorrhage Docusate Sodium (Colace) 100 mg PO BID PRN PRN Reason: Constipation Last Admin: 09/20/19 00:16 Dose: 100 mg Emollient Ointment (Lansinoh Hpa) 0 gm TOP ASDIRECTED PRN PRN Reason: Sore Nipples Lactated Ringer's (Ringers, Lactated) 1,000 mls @ 150 mls/hr IV ASDIRECTED HANK Last Admin: 09/19/19 15:22 Dose: 150 mls/hr Oxytocin/Sodium Chloride (Oxytocin 30 Unit/500 Ml-Ns) 30 unit in 500 mls @ 500 mls/hr IV TITRATE [facility]ANK Tranexamic Acid 1,000 mg/ (Sodium Chloride) 110 mls @ 660 mls/hr IV ONETIME PRN PRN Reason: Bleeding Oxytocin/Sodium Chloride (Oxytocin 30 Unit/500 Ml-Ns) 30 unit in 500 mls @ 2 mls/hr IV TITRATE [facility]; Protocol Last Titration: 09/19/19 18:23 Dose: 26 munits/min, 26 mls/hr Ampicillin Sodium 1 gm/ Sodium (Chloride) 50 mls @ 100 mls/hr IV Q4H [facility] Last Admin: 09/19/19 18:22 Dose: 100 mls/hr Ibuprofen (Motrin) 800 mg PO Q8H PRN PRN Reason: Pain Last Admin: 09/20/19 06:22 Dose: 800 mg Lidocaine HCl (Xylocaine 1%) 50 ml INJECT ONETIME PRN PRN Reason: Laceration repair Methylergonovine Maleate (Methergine) 0.2 mg IM ASDIRECTED PRN PRN Reason: Post Hemorrhage Misoprostol (Cytotec) 200 mcg PO ONETIME PRN PRN Reason: Post Hemorrhage Nalbuphine HCl (Nubain) 10 mg IVPUSH Q1H PRN PRN Reason: Pain (severe 7-10) Oxycodone HCl (Oxycodone) 5 mg PO Q2H PRN PRN Reason: Pain Sodium Chloride (Saline Flush) 10 ml FLUSH ASDIRECTED PRN PRN Reason: Keep Vein Open Sodium Chloride (Saline Flush) 2.5 ml FLUSH ASDIRECTED PRN PRN Reason: Keep Vein Open Sodium Chloride (Normal Saline) 10 ml IV ASDIRECTED PRN PRN Reason: IV Use Sterile Water (Sterile Water For Irrigation) 1,000 ml IRR ASDIRECTED PRN PRN Reason: delivery Last Admin: 09/19/19 22:06 Dose: 1,000 ml Terbutaline Sulfate (Brethine) 0.25 mg SUBCUT ASDIRECTED PRN PRN Reason: Tacysystole [place] Fariba (Tucks) 1 pad TOP ASDIRECTED PRN PRN Reason: comfort care Discontinued Medications Ampicillin Sodium (Ampicillin) Confirm Administered Dose 1 gm .ROUTE .STK-MED ONE Stop: 09/19/19 10:38 Ephedrine Sulfate (Ephedrine Sulfate) Confirm Administered Dose 50 mg .ROUTE .STK-MED ONE Stop: 09/19/19 15:04 Ampicillin Sodium 2 gm/ Sodium (Chloride) 100 mls @ 200 mls/hr IV ONETIME ONE Stop: 09/19/19 06:29 Last Admin: 09/19/19 06:19 Dose: 200 mls/hr Ampicillin Sodium 1 gm/ Sodium (Chloride) 50 mls @ 100 mls/hr IV Q4H [facility] Ampicillin Sodium 1 gm/ Sodium (Chloride) 50 mls @ 100 mls/hr IV Q4H [facility] Fentanyl/Bupivacaine HCl (Theobovn-Ujjvv-Jp 2 Mcg/Ml-0.125%) Confirm Administered Dose 100 mls @ as directed .ROUTE .STK-MED ONE Stop: 09/19/19 14:20 - Infant Interaction Disposition, : at Bedside Infant Feeding: Attempted ; Nursed Fair/Poor Support Person: - Recovery Exam Fundal Tone: Firm Fundal Level: At Umbilicus Fundal Placement: Midline Lochia Amount: Moderate Lochia Color: Rubra/Red Bladder Status: Voiding Urinary Elimination: Not Voiding - Exam General: Alert, Oriented Neck: Supple Lungs: Clear to Auscultation, Normal Respiratory Effort Cardiovascular: Regular Rate, Regular Rhythm GI/Abdominal Exam: Soft, Non-Tender Extremities: Non-Tender Skin: Warm, Dry, Intact Neurological: No New Focal Deficit Psy/Mental Status: Alert, Normal Affect, Normal Mood - Problem List & Annotations (1) Vaginal delivery SNOMED Code(s): 024522519 Code(s): O80 - ENCOUNTER FOR FULL-TERM UNCOMPLICATED DELIVERY Status: Acute Current Visit: No - Problem List Review Problem List Initiated/Reviewed/Updated: Yes - My Orders Last 24 Hours: My Active Orders 09/19/19 10:39 Ampicillin 1 gm Sodium Chloride 0.9% [Normal Saline] 50 ml IV Q4H 03/02/20 21:39 Patient Status [ADT] Routine May Shower [RC] ASDIRECTED Notify Provider Vital Signs [RC] ASDIRECTED Up ad Pilar [RC] ASDIRECTED Vital Signs [RC] PER UNIT ROUTINE Acetaminophen [Tylenol Extra Strength] 1,000 mg PO Q6H PRN Benzocaine/Menthol [Dermoplast Pain Relief 20%-0.5% Wilson] 78 gm TOP ASDIRECTED PRN Docusate Sodium [Colace] 100 mg PO BID PRN Ibuprofen [Motrin] 800 mg PO Q8H PRN Lanolin [Lansinoh HPA] See Dose Instructions TOP ASDIRECTED PRN bisacodyL [Dulcolax] 10 mg RECTAL ONETIME PRN oxyCODONE 5 mg PO Q2H PRN witch Fariba [Tucks] 1 pad TOP ASDIRECTED PRN Assess Lochia [WOMSER] Per Unit Routine Assess Uterine Involution [WOMSER] Per Unit Routine Breast Pump [WOMSER] Per Unit Routine DVT/VTE Prophylaxis Reflex [OM.PC] Routine Peripheral IV Discontinue [OM.PC] Routine 09/19/19 21:40 VTE/DVT Education [RC] PER UNIT ROUTINE Ice Therapy [OM.PC] Per Unit Routine Perineal Care [OM.PC] Per Unit Routine Sitz Bath [OM.PC] Per Unit Routine 09/19/19 Dinner Regular Diet [DIET] - Assessment Assessment:: 34yo s/p at 39w2d, PPD#1. - Plan Plan:: Patient undecided if she would like discharge home at 24 hours . Reviewed discharge instructions. Rhogam today.
--- NOTE | 2019-09-20 09:50 | PCM48HPAN ---
Post Anesthesia Note - EVALUATION WITHIN 48HRS OF ANESTHETIC Vital Signs in Normal Range: Yes Patient Participated in Evaluation: Yes Respiratory Function Stable: Yes Airway Patent: Yes Cardiovascular Function Stable: Yes Hydration Status Stable: Yes Pain Control Satisfactory: Yes Nausea and Vomiting Control Satisfactory: Yes Mental Status Recovered: Yes Vital Signs: Last Vital Signs Temp 36.6 C 09/20/19 09:33 Pulse 78 09/20/19 04:30 Resp 14 09/20/19 09:33 BP 107/64 09/20/19 09:33 Pulse Ox 97 09/20/19 09:33 - COMMENTS/OBSERVATIONS Free Text/Narrative:: Patient doing well. No anesthesia complications noted.
--- NOTE | 2019-09-20 11:11 | OR ---
SURGEON: Marli Cruz MD DATE OF PROCEDURE: 09/19/2019 PREOPERATIVE DIAGNOSES: 1. A 34-year-old G2, P1-0-0-1 at 39 weeks and 2 days' gestation. 2. Elective induction of labor. 3. Group B Streptococcus positive. POSTOPERATIVE DIAGNOSES: 1. G2, P2-0-0-2 status post spontaneous vaginal delivery. 2. Group B Streptococcus positive. PROCEDURE: Spontaneous vaginal delivery. PRIMARY SURGEON: Marli Cruz MD ANESTHESIA: Epidural. ESTIMATED BLOOD LOSS: 500 mL. FINDINGS: Live female infant in cephalic presentation. scores 8 and 9 at one and five minutes respectively. Weight 3420 g. Placenta intact with 3-vessel cord. Left sulcal laceration. INDICATIONS: The patient is a 34-year-old G2, P1-0-0-1, who presented at 39 weeks and 2 days' gestation for planned elective induction of labor. Upon presentation, an ultrasound was obtained to confirm infant was in cephalic presentation as, over the past weekend, the was noted to be in oblique presentation. This ultrasound confirmed cephalic presentation. Pitocin was begun for induction of labor. Ampicillin was begun for GBS prophylaxis. At 2 cm dilated, artificial rupture of membranes occurred with clear fluid noted. The patient received an epidural and was subsequently 4 cm dilated. DESCRIPTION OF PROCEDURE: The patient progressed to complete cervical dilation and pushed and delivered a live female . The head was delivered followed quickly by the shoulders and remainder of the body. The infant was placed on the patient's abdomen. The nose and mouth were suctioned with bulb suction. After approximately 60 seconds, the cord was clamped and cut. The placenta then delivered using the Luo-Goodson maneuver intact and with 3-vessel cord. The perineum was inspected, and a left sulcal laceration was noted. The left sulcal laceration was repaired with 2-0 Vicryl in a running fashion. Fundus was firm and lochia was scant. Estimated blood loss was 500 mL. The and the patient tolerated the delivery well. [id number] / MODL /[id number] MTDD
[2019-09-20] MEDS: Ampicillin 1 GM in Sodium Chloride 0.9% 50 ML IV SCH (20:03)
[2019-09-21 04:27] VITALS: PULSE 75
[2019-09-21 08:30] VITALS: BP 101/65
--- NOTE | 2019-09-21 08:30 | PCM.PNPP ---
- General Info Date of Service: 09/21/19 Subjective Update: Patient without complaints this morning. going well. Minimal lochia. Functional Status: Reports: Pain Controlled, Tolerating Diet, Ambulating, Urinating - Review of Systems General: Reports: No Symptoms HEENT: Reports: No Symptoms Pulmonary: Reports: No Symptoms Cardiovascular: Reports: No Symptoms Gastrointestinal: Reports: No Symptoms 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: Reports: No Symptoms 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: Reports: No Symptoms Skin: Reports: No Symptoms Neurological: Reports: No Symptoms Psychiatric: Reports: No Symptoms - Patient Data Vital Signs - Most Recent: Last Vital Signs Temp 36.6 C 09/21/19 04:26 Pulse 75 09/21/19 04:26 Resp 18 09/21/19 04:26 BP 107/68 09/21/19 04:26 Pulse Ox 97 09/21/19 04:26 Weight - Most Recent: 75.75 kg Med Orders - Current: Current Medications Acetaminophen (Tylenol Extra Strength) 1,000 mg PO Q6H PRN PRN Reason: Pain Last Admin: 09/20/19 00:14 Dose: 500 mg Benzocaine/Menthol (Dermoplast Pain Relief 20%-0.5% [place]) 78 gm TOP ASDIRECTED PRN PRN Reason: Perineal Comfort Measure Last Admin: 09/20/19 00:13 Dose: 1 applic Bisacodyl (Dulcolax) 10 mg RECTAL ONETIME PRN PRN Reason: Constipation Butorphanol Tartrate (Stadol) 1 mg IVPUSH Q1H PRN PRN Reason: Pain Carboprost Tromethamine (Hemabate Ds) 250 mcg IM ASDIRECTED PRN PRN Reason: Post Hemorrhage Docusate Sodium (Colace) 100 mg PO BID PRN PRN Reason: Constipation Last Admin: 09/20/19 00:16 Dose: 100 mg Emollient Ointment (Lansinoh Hpa) 0 gm TOP ASDIRECTED PRN PRN Reason: Sore Nipples Lactated Ringer's (Ringers, Lactated) 1,000 mls @ 150 mls/hr IV ASDIRECTED HANK Last Admin: 09/19/19 15:22 Dose: 150 mls/hr Oxytocin/Sodium Chloride (Oxytocin 30 Unit/500 Ml-Ns) 30 unit in 500 mls @ 500 mls/hr IV TITRATE HANK Tranexamic Acid 1,000 mg/ (Sodium Chloride) 110 mls @ 660 mls/hr IV ONETIME PRN PRN Reason: Bleeding Oxytocin/Sodium Chloride (Oxytocin 30 Unit/500 Ml-Ns) 30 unit in 500 mls @ 2 mls/hr IV TITRATE HANK; Protocol Last Titration: 09/19/19 18:23 Dose: 26 munits/min, 26 mls/hr Ibuprofen (Motrin) 800 mg PO Q8H PRN PRN Reason: Pain Last Admin: 09/20/19 14:26 Dose: 800 mg Lidocaine HCl (Xylocaine 1%) 50 ml INJECT ONETIME PRN PRN Reason: Laceration repair Methylergonovine Maleate (Methergine) 0.2 mg IM ASDIRECTED PRN PRN Reason: Post Hemorrhage Misoprostol (Cytotec) 200 mcg PO ONETIME PRN PRN Reason: Post Hemorrhage Nalbuphine HCl (Nubain) 10 mg IVPUSH Q1H PRN PRN Reason: Pain (severe 7-10) Oxycodone HCl (Oxycodone) 5 mg PO Q2H PRN PRN Reason: Pain Sodium Chloride (Saline Flush) 10 ml FLUSH ASDIRECTED PRN PRN Reason: Keep Vein Open Sodium Chloride (Saline Flush) 2.5 ml FLUSH ASDIRECTED PRN PRN Reason: Keep Vein Open Sodium Chloride (Normal Saline) 10 ml IV ASDIRECTED PRN PRN Reason: IV Use Sterile Water (Sterile Water For Irrigation) 1,000 ml IRR ASDIRECTED PRN PRN Reason: delivery Last Admin: 09/19/19 22:06 Dose: 1,000 ml Terbutaline Sulfate (Brethine) 0.25 mg SUBCUT ASDIRECTED PRN PRN Reason: Tacysystole Witch Fariba (Tucks) 1 pad TOP ASDIRECTED PRN PRN Reason: comfort care Discontinued Medications Ampicillin Sodium (Ampicillin) Confirm Administered Dose 1 gm .ROUTE .STK-MED ONE Stop: 09/19/19 10:38 Last Admin: 09/20/19 20:02 Dose: Not Given Ephedrine Sulfate (Ephedrine Sulfate) Confirm Administered Dose 50 mg .ROUTE .STK-MED ONE Stop: 09/19/19 15:04 Last Admin: 09/20/19 20:03 Dose: Not Given Ampicillin Sodium 2 gm/ Sodium (Chloride) 100 mls @ 200 mls/hr IV ONETIME ONE Stop: 09/19/19 06:29 Last Admin: 09/19/19 06:19 Dose: 200 mls/hr Ampicillin Sodium 1 gm/ Sodium (Chloride) 50 mls @ 100 mls/hr IV Q4H HANK Ampicillin Sodium 1 gm/ Sodium (Chloride) 50 mls @ 100 mls/hr IV Q4H HANK Ampicillin Sodium 1 gm/ Sodium (Chloride) 50 mls @ 100 mls/hr IV Q4H HANK Last Admin: 09/20/19 20:03 Dose: Not Given Fentanyl/Bupivacaine HCl (Mpbbregk-Mfntw-Il 2 Mcg/Ml-0.125%) Confirm Administered Dose 100 mls @ as directed .ROUTE .STK-MED ONE Stop: 09/19/19 14:20 Last Admin: 09/20/19 20:03 Dose: Not Given - Interaction Disposition, : [place] at Bedside Infant Feeding: Attempted ; Nursed Fair/Poor Support Person: - Recovery Exam Fundal Tone: Firm Fundal Level: 1 Fingerbreadths Below Umbilicus Fundal Placement: Midline Lochia Amount: Scant Lochia Color: Rubra/Red Bladder Status: Voiding Urinary Elimination: Voided - Exam General: Alert, Oriented Neck: Supple Lungs: Clear to Auscultation, Normal Respiratory Effort Cardiovascular: Regular Rate, Regular Rhythm GI/Abdominal Exam: Soft, Non-Tender Extremities: Non-Tender, No Pedal Edema Skin: Warm, Dry, Intact Neurological: No New Focal Deficit Psy/Mental Status: Alert, Normal Affect, Normal Mood - Problem List & Annotations (1) Vaginal delivery SNOMED Code(s): 238915918 Code(s): O80 - ENCOUNTER FOR FULL-TERM UNCOMPLICATED DELIVERY Status: Acute Current Visit: No - Problem List Review Problem List Initiated/Reviewed/Updated: Yes - Assessment Assessment:: 34yo s/p at 39w2d, PPD#2. - Plan Plan:: Discharge home today. Reviewed discharge instructions. Received Rhogam. 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
== END 2019-09-21 09:50 | disposition home or self-care (01) | DRG 560 ==
LOC: MW.OBCHECK 05:14 → MW.OB 05:16 → MW.OBCHECK 05:45 → MW.OB 10:31 → OBSVTOIN 21:39 → MW.OB 09-20 02:45
PROVIDERS: ADMIT Obstetrics & Gynecology; ATTEND Obstetrics & Gynecology
PROC: 10E0XZZ Delivery of Products of Conception, External Approach (ICD-10-PCS; principal; 2019-09-19)
PROC: 10907ZC Drainage of Amniotic Fluid, Therapeutic from Products of Conception, Via Natural or Artificial Opening (ICD-10-PCS; 2019-09-19)
PROC: 3E033VJ Introduction of Other Hormone into Peripheral Vein, Percutaneous Approach (ICD-10-PCS; 2019-09-19)
PROC: 0HQ9XZZ Repair Perineum Skin, External Approach (ICD-10-PCS; 2019-09-19)
PROC: 3E0R3BZ Introduction of Anesthetic Agent into Spinal Canal, Percutaneous Approach (ICD-10-PCS; 2019-09-19)
PROC: 00HU33Z Insertion of Infusion Device into Spinal Canal, Percutaneous Approach (ICD-10-PCS; 2019-09-19)
PROC: 0UQGXZZ Repair Vagina, External Approach (ICD-10-PCS; 2019-09-19)
PROC: 3E0234Z Introduction of Serum, Toxoid and Vaccine into Muscle, Percutaneous Approach (ICD-10-PCS; 2019-09-20)
DX: O99.824 Streptococcus B carrier state complicating childbirth (principal); O71.4 Obstetric high vaginal laceration alone; O26.893 Other specified pregnancy related conditions, third trimester; Z67.11 Type A blood, Rh negative; Z3A.39 39 weeks gestation of pregnancy; Z37.0 Single live birth
CPT/HCPCS: 36415; 36430; 51702; 59025; 59409; 76815; 76815-26; 85014; 85018; 85027; 85460; 86592; 86593; 86850; 86870; 86900; 86901; A9270-GY; J0290; J2590; J2792; J7050; J7120

== ENCOUNTER 2021-01-07 06:51 | Day surgery (SDC) | payer BC ==
[~2021-01-07 06:51] MED LIST changes: -Midazolam 1 MG/ML 2 ML SDV ONE; -Propofol 200 MG/20 ML SDV ONE; -Sodium Chloride 0.9% 10 ML Syringe FLUSH PRN; -Sodium Chloride 0.9% 2.5 ML Syringe FLUSH PRN
[2021-01-07] MEDS ORDERED: Albuterol 0.083% 2.5 MG/3 ML Neb Soln NEB PRN (06:57)
[2021-01-07] MEDS ORDERED: HYDROmorphone 2 MG/ML Syringe IVPUSH PRN (06:57)
[2021-01-07] MEDS ORDERED: fentaNYL 100 MCG/2 ML SDV IVPUSH PRN (06:57)
[2021-01-07] MEDS ORDERED: Metoclopramide 10 MG/2 ML SDV IVPUSH PRN (06:57)
[2021-01-07] MEDS ORDERED: Ondansetron 4 MG/2 ML SDV IVPUSH PRN (06:57)
[2021-01-07] MEDS ORDERED: Naloxone 0.4 MG/ML Syringe IVPUSH PRN (06:57)
[2021-01-07] MEDS ORDERED: Lidocaine 2% 5 ML SDV ONE (06:58)
[2021-01-07] MEDS ORDERED: propofoL 100 ML ONE (06:58)
[2021-01-07] MEDS ORDERED: Ketorolac 30 MG/ML SDV ONE (06:59)
[2021-01-07] MEDS ORDERED: Dexamethasone 4 MG/ML 5 ML MDV ONE (06:59)
[2021-01-07] MEDS ORDERED: fentaNYL 100 MCG/2 ML SDV ONE (06:59)
[2021-01-07] MEDS ORDERED: Midazolam 1 MG/ML 2 ML SDV ONE (07:43)
--- NOTE | 2021-01-07 07:51 | PCM.PREANE ---
Preanesthetic Assessment - Anesthesia/Transfusion/Family Hx Anesthesia History: Prior Anesthesia Without Reaction Family History of Anesthesia Reaction: No Transfusion History: No Prior Transfusion(s) Intubation History: Unknown - Review of Systems General: No Symptoms Pulmonary: No Symptoms Cardiovascular: No Symptoms Gastrointestinal: No Symptoms Neurological: No Symptoms Other: Reports: None - Physical Assessment NPO Status Date: 01/07/21 NPO Status Time: 00:00 Vital Signs: Last Vital Signs Temp 97.9 F 01/07/21 07:00 Pulse 77 01/07/21 07:00 Resp 15 01/07/21 07:00 BP 113/67 01/07/21 07:00 Pulse Ox 98 01/07/21 07:00 Height: 5 ft 3 in Weight: 139 lb ASA Class: 1 Mental Status: Alert & Oriented x3 Dentition: Reports: Normal Dentition ROM/Head Extension: Full Lungs: Clear to Auscultation, Normal Respiratory Effort Cardiovascular: Regular Rate, Regular Rhythm - Lab Values: Laboratory Last Values WBC 6.23 K/uL (4.0-11.0) 01/07/21 07:08 RBC 4.73 M/uL (4.30-5.90) 01/07/21 07:08 Hgb 14.3 g/dL (12.0-16.0) 01/07/21 07:08 Hct 44.4 % (36.0-46.0) 01/07/21 07:08 MCV 93.9 fL (80.0-98.0) 01/07/21 07:08 MCH 30.2 pg (27.0-32.0) 01/07/21 07:08 MCHC 32.2 g/dL (31.0-37.0) 01/07/21 07:08 RDW Std Deviation 46.1 fl (28.0-62.0) 01/07/21 07:08 RDW Coeff of Santino 13 % (11.0-15.0) 01/07/21 07:08 Plt Count 233 K/uL (150-400) 01/07/21 07:08 MPV 9.90 fL (7.40-12.00) 01/07/21 07:08 Nucleated RBC % 0.0 /100WBC 01/07/21 07:08 Nucleated RBCs # 0 K/uL 01/07/21 07:08 HCG, Qual NEGATIVE (NEG) 01/07/21 07:08 - Allergies Allergies/Adverse Reactions: Allergies Allergy/AdvReac Type Severity Reaction Status Date / Time No Known Allergies Allergy Verified 01/01/21 10:06 - Acknowledgements Anesthesia Type Planned: General Anesthesia Pt an Appropriate Candidate for the Planned Anesthesia: Yes Alternatives and Risks of Anesthesia Discussed w Pt/Guardian: Yes Pt/Guardian Understands and Agrees with Anesthesia Plan: Yes PreAnesthesia Questionnaire - Past Health History Medical/Surgical History: Denies Medical/Surgical History HEENT History: Reports: Impaired Vision, Other (See Below) Other HEENT History: wears glasses/contacts Cardiovascular History: Reports: None Respiratory History: Reports: None Gastrointestinal History: Reports: Hemorrhoids 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 History: Reports: None 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: 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 History: Reports: None Neurological History: Reports: None Psychiatric History: Reports: Anxiety, Depression Endocrine/Metabolic History: Reports: None Hematologic History: Reports: None Immunologic History: Reports: None Oncologic (Cancer) History: Reports: None Dermatologic History: Reports: None - Infectious Disease History Infectious Disease History: Reports: Chicken Pox, Human Papilloma Virus (HPV), Influenza, Mononucleosis - Past Surgical History Head Surgeries/Procedures: Reports: None HEENT Surgical History: Reports: Adenoidectomy, Naso-Sinus Surgery, Oral Surgery, Tonsillectomy Cardiovascular Surgical History: Reports: None Respiratory Surgical History: Reports: None GI Surgical History: Reports: Colonoscopy Female Surgical History: Reports: None Endocrine Surgical History: Reports: None Neurological Surgical History: Reports: None 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 Surgical History: Reports: None Oncologic Surgical History: Reports: None Dermatological Surgical History: Reports: None - SUBSTANCE USE Tobacco Use Status *Q: Never Tobacco User - HOME MEDS Home Medications: Home Meds Pnv No.103/Folic/Om3s/Fish Oil [ Gummies] 1 each PO DAILY 06/17/19 [History] Calcium Carb, Citrate/Vit D3 [Calcium + D3 ER Tablet] 1 tab PO DAILY 09/19/19 [History] Cholecalciferol (Vitamin D3) [Vitamin D3] 1 tab PO DAILY 09/19/19 [History] Magnesium Amino Acid Chelate [Magnesium] 1 tab PO DAILY 09/19/19 [History] Zinc Gluconate-Zinc Picolinate [Zinc] 1 tab PO DAILY 01/01/21 [History] - CURRENT (IN HOUSE) MEDS Current Meds: Current Medications Albuterol (Albuterol 0.083% 2.5 Mg/3 Ml Neb Soln) 2.5 mg NEB ONETIME PRN PRN Reason: Wheezing Droperidol (Droperidol 5 Mg/2 Ml Sdv) 0.625 mg IVPUSH ONETIME PRN PRN Reason: Nausea/Vomiting Fentanyl (Fentanyl 100 Mcg/2 Ml Sdv) 50 mcg IVPUSH Q5M PRN PRN Reason: Pain (mild 1-3) Hydromorphone HCl (Hydromorphone 2 Mg/Ml Syringe) 0.5 mg IVPUSH Q10M PRN PRN Reason: Pain (moderate 4-6) Lactated Ringer's (Ringers, Lactated) 1,000 mls @ 100 mls/hr IV ASDIRECTED HANK Last Admin: 01/07/21 07:10 Dose: 100 mls/hr Documented by: Metoclopramide HCl (Metoclopramide 10 Mg/2 Ml Sdv) 10 mg IVPUSH ONETIME PRN PRN Reason: Nausea/Vomiting Naloxone HCl (Naloxone 0.4 Mg/Ml Syringe) 0.1 mg IVPUSH ASDIRECTED PRN PRN Reason: Respiratory Depression Ondansetron HCl (Ondansetron 4 Mg/2 Ml Sdv) 4 mg IVPUSH ONETIME PRN PRN Reason: Nausea/Vomiting Discontinued Medications Dexamethasone (Dexamethasone 4 Mg/Ml 5 Ml Mdv) Confirm Administered Dose 20 mg .ROUTE .STK-MED ONE Stop: 01/07/21 07:00 Fentanyl (Fentanyl 100 Mcg/2 Ml Sdv) Confirm Administered Dose 100 mcg .ROUTE .STK-MED ONE Stop: 01/07/21 07:00 Propofol (Diprivan 100 Ml) Confirm Administered Dose 100 mls @ as directed .ROUTE .STK-MED ONE Stop: 01/07/21 06:59 Ketorolac Tromethamine (Ketorolac 30 Mg/Ml Sdv) Confirm Administered Dose 30 mg .ROUTE .STK-MED ONE Stop: 01/07/21 07:00 Lidocaine (Lidocaine 2% 5 Ml Sdv) Confirm Administered Dose 5 ml .ROUTE .STK-MED ONE Stop: 01/07/21 06:59 Midazolam HCl (Midazolam 1 Mg/Ml 2 Ml Sdv) Confirm Administered Dose 2 mg .ROUTE .[facility]-MED ONE Stop: 01/07/21 07:44
--- NOTE | 2021-01-07 08:30 | PCM.OPNOTE ---
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
--- NOTE | 2021-01-07 08:31 | PCM.POSTAN ---
POST ANESTHESIA ASSESSMENT - MENTAL STATUS Mental Status: Alert, Oriented - VITAL SIGNS Vital Signs: Last Vital Signs Temp 96.8 F L 01/07/21 08:14 Pulse 96 01/07/21 08:25 Resp 10 L 01/07/21 08:25 BP 95/59 L 01/07/21 08:25 Pulse Ox 97 01/07/21 08:25 - RESPIRATORY Respiratory Status: Respiratory Rate WNL, Airway Patent, O2 Saturation Stable - CARDIOVASCULAR CV Status: Pulse Rate WNL, Blood Pressure Stable - GASTROINTESTINAL GI Status: No Symptoms - POST OP HYDRATION Hydration Status: Adequate & Stable
--- NOTE | 2021-01-07 08:32 | PCM48HPAN ---
Post Anesthesia Note - EVALUATION WITHIN 48HRS OF ANESTHETIC Vital Signs in Normal Range: Yes Patient Participated in Evaluation: Yes Respiratory Function Stable: Yes Airway Patent: Yes Cardiovascular Function Stable: Yes Hydration Status Stable: Yes Pain Control Satisfactory: Yes Nausea and Vomiting Control Satisfactory: Yes Mental Status Recovered: Yes Vital Signs: Last Vital Signs Temp 96.8 F L 01/07/21 08:14 Pulse 96 01/07/21 08:25 Resp 10 L 01/07/21 08:25 BP 95/59 L 01/07/21 08:25 Pulse Ox 97 01/07/21 08:25
[2021-01-07 09:25] VITALS: BP 101/66; PULSE 67
--- NOTE | 2021-01-07 14:58 | OR ---
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 PROCEDURE: Loop electrosurgical excision procedure. PRIMARY SURGEON: Marli Cruz MD ANESTHESIA: General LMA and local. INTRAVENOUS FLUIDS: 1000 mL lactated Ringers. ESTIMATED BLOOD LOSS: 5 mL. SPECIMEN: Ectocervix. FINDINGS: Grossly normal-appearing cervix with a small amount of absent uptake from Lugol solution at 12 o'clock. INDICATIONS: This is a 35-year-old G2, P2 with a history of ASCUS Pap smear in 2019 with GERBER 1 on cervical biopsy. In 2020, she had a repeat Pap that showed ASC-H and repeat colposcopic biopsy revealed GERBER 2-3. Her ASCCP guidelines recommendation was to undergo a LEEP procedure for both diagnostic and treatment purposes. The risks and benefits were discussed with the patient prior to surgery including potential risk of labor, cervical incompetence, and premature rupture of membranes. The patient accepted these risks and desired to proceed with diagnosis and treatment. DESCRIPTION OF PROCEDURE: The patient was taken to the operating room where LMA was obtained without difficulty. She was placed in the dorsal lithotomy position with legs in Yellofin stirrups. She was prepared and draped in normal sterile fashion. A Graves speculum was placed in the vagina. 1% lidocaine with epinephrine was injected into the uterosacral ligaments and cervix. Lugol solution was painted along the entire cervix. An area of non-uptake was noted around the squamocolumnar junction at 12 o'clock. A 20 x 10 mm loop electrode was used to remove the ectocervix including the area of non-uptake. A stitch was placed at 12 o'clock for pathologist orientation. The bed of the excised cervical tissue along the cervix was cauterized using the roller ball, and hemostasis was noted. The ParaGard IUD strings were noted to be in place. Monsel solution was placed on the cervical bed. All instruments removed from the vagina. The patient was awakened and taken to recovery room in stable condition. [id number] / MODL /[id number] MTDD
== END 2021-01-07 09:40 | disposition home or self-care (01) ==
LOC: MW.SDS 06:51
PROVIDERS: ATTEND Obstetrics & Gynecology
DX: N87.1 Moderate cervical dysplasia (principal); K64.8 Other hemorrhoids; Z98.890 Other specified postprocedural states; Z91.048 Other nonmedicinal substance allergy status; Z79.899 Other long term (current) drug therapy
CPT/HCPCS: 36415; 57522; 84703; 85027; J1100; J1885; J2250; J2704; J3010; J7120; 00940; 88307

== ENCOUNTER 2021-02-07 09:45 | Day surgery (SDC) | payer BC ==
[~2021-02-07 09:45] MED LIST changes: +Bupivacaine 0.5% 30 ML SDV ONE; +Chloroprocaine 10 MG/ML 5 ML Amp ONE; +Dexamethasone 4 MG/ML 5 ML MDV ONE; +Dexmedetomidine 200 MCG/2 ML SDV ONE; +Lidocaine 2% Jelly 30 ML Tube ONE; +Ondansetron 4 MG/2 ML SDV ONE; +Propofol 200 MG/20 ML SDV ONE; +Sodium Chloride 0.9% 10 ML SDV IV PRN; +Sodium Chloride 0.9% 10 ML Syringe FLUSH PRN; +Sodium Chloride 0.9% 2.5 ML Syringe FLUSH PRN; +Sodium Chloride 0.9% 20 ML ONE; +cefOXitin 2 GM in Premix Bag 1 BAG IV ONE; +fentaNYL 100 MCG/2 ML SDV ONE
[2021-02-07] MEDS ORDERED: Bupivacaine Liposome 1.3% 20 ML SDV INJECT ONE (09:46)
--- NOTE | 2021-02-07 10:48 | PCM.PREANE ---
Preanesthetic Assessment - Anesthesia/Transfusion/Family Hx Anesthesia History: Prior Anesthesia Without Reaction Transfusion History: No Prior Transfusion(s) Intubation History: Unknown - Physical Assessment NPO Status Date: 02/06/21 NPO Status Time: 20:00 Vital Signs: Last Vital Signs Temp 36.8 C 02/07/21 10:40 Pulse 75 02/07/21 10:40 Resp 16 02/07/21 10:40 BP 109/75 02/07/21 10:40 Pulse Ox 97 02/07/21 10:40 Height: 5 ft 3 in Weight: 64.41 kg ASA Class: 1 Airway Class: Mallampati = 2 Thyro-Mental Finger Breadths: 3 Mouth Opening Finger Breadths: 3 - Lab Values: Laboratory Last Values Urine HCG, Qual NEGATIVE (NEGATIVE) 02/07/21 09:51 - Allergies Allergies/Adverse Reactions: Allergies Allergy/AdvReac Type Severity Reaction Status Date / Time No Known Allergies Allergy Verified 02/07/21 10:32 - Acknowledgements Anesthesia Type Planned: Spinal Pt an Appropriate Candidate for the Planned Anesthesia: Yes Alternatives and Risks of Anesthesia Discussed w Pt/Guardian: Yes Pt/Guardian Understands and Agrees with Anesthesia Plan: Yes PreAnesthesia Questionnaire - Past Health History Medical/Surgical History: Denies Medical/Surgical History HEENT History: Reports: Impaired Vision, Other (See Below) Other HEENT History: wears glasses/contacts Cardiovascular History: Reports: None Respiratory History: Reports: None Gastrointestinal History: Reports: Hemorrhoids 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 History: 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: 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: 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 Neurological History: Reports: None Psychiatric History: Reports: Anxiety, Depression Endocrine/Metabolic History: Reports: None Hematologic History: Reports: None Immunologic History: Reports: None Oncologic (Cancer) History: Reports: None Dermatologic History: Reports: None - Infectious Disease History Infectious Disease History: Reports: Chicken Pox, Human Papilloma Virus (HPV), Influenza, Mononucleosis - Past Surgical History Head Surgeries/Procedures: Reports: None HEENT Surgical History: Reports: Adenoidectomy, Naso-Sinus Surgery, Oral Surgery, Tonsillectomy Cardiovascular Surgical History: Reports: None Respiratory Surgical History: Reports: None GI Surgical History: Reports: Colonoscopy Female Surgical History: Reports: LEEP Endocrine Surgical History: Reports: None Neurological Surgical History: Reports: None 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 Surgical History: Reports: None Oncologic Surgical History: Reports: None Dermatological Surgical History: Reports: None - SUBSTANCE USE Tobacco Use Status *Q: Never Tobacco User - HOME MEDS Home Medications: Home Meds Pnv No.103/Folic/Om3s/Fish Oil [ Gummies] 1 each PO DAILY 06/17/19 [History] Calcium Carb, Citrate/Vit D3 [Calcium + D3 ER Tablet] 1 tab PO DAILY 09/19/19 [History] Cholecalciferol (Vitamin D3) [Vitamin D3] 400 units PO DAILY 09/19/19 [History] Magnesium Amino Acid Chelate [Magnesium] 200 mg PO DAILY 09/19/19 [History] Ascorbic Acid [Vitamin C] 125 mg CHEW DAILY 02/01/21 [History] Copper [Paragard T 380-A] 1 device VAG ONETIME 02/01/21 [History] Melatonin 1 mg PO BEDTIME PRN 02/01/21 [History] - CURRENT (IN HOUSE) MEDS Current Meds: Current Medications Lactated Ringer's (Ringers, Lactated) 1,000 mls @ 125 mls/hr IV ASDIRECTED HANK Last Admin: 02/07/21 10:32 Dose: 125 mls/hr Documented by: Sodium Chloride (Sodium Chloride 0.9% 2.5 Ml Syringe) 2.5 ml FLUSH ASDIRECTED PRN PRN Reason: Keep Vein Open Sodium Chloride (Sodium Chloride 0.9% 10 Ml Sdv) 10 ml IV ASDIRECTED PRN PRN Reason: IV Use Sodium Chloride (Sodium Chloride 0.9% 10 Ml Syringe) 10 ml FLUSH ASDIRECTED PRN PRN Reason: Keep Vein Open Discontinued Medications Bupivacaine HCl (Bupivacaine 0.5% 30 Ml Sdv) Confirm Administered Dose 30 ml .ROUTE .STK-MED ONE Stop: 02/07/21 09:41 Chloroprocaine HCl (Chloroprocaine 10 Mg/Ml 5 Ml Amp) Confirm Administered Dose 5 ml .ROUTE .STK-MED ONE Stop: 02/07/21 07:43 Dexamethasone (Dexamethasone 4 Mg/Ml 5 Ml Mdv) Confirm Administered Dose 20 mg .ROUTE .STK-MED ONE Stop: 02/07/21 09:12 Dexmedetomidine HCl (Dexmedetomidine 200 Mcg/2 Ml Sdv) Confirm Administered Dose 200 mcg .ROUTE .STK-MED ONE Stop: 02/07/21 09:12 Fentanyl (Fentanyl 100 Mcg/2 Ml Sdv) Confirm Administered Dose 100 mcg .ROUTE .STK-MED ONE Stop: 02/07/21 09:07 Cefoxitin Sodium 2 gm/ Premix 50 mls @ 100 mls/hr IV ONETIME ONE Stop: 02/06/21 15:55 Acetaminophen (Ofirmev 1000 Mg/100 Ml) Confirm Administered Dose 100 mls @ as directed .ROUTE .STK-MED ONE Stop: 02/07/21 09:09 Sodium Chloride (Normal Saline) Confirm Administered Dose 20 mls @ as directed .ROUTE .STK-MED ONE Stop: 02/07/21 09:14 Lidocaine HCl (Lidocaine 2% Jelly 30 Ml Tube) Confirm Administered Dose 30 ml .ROUTE .STK-MED ONE Stop: 02/07/21 09:41 Ondansetron HCl (Ondansetron 4 Mg/2 Ml Sdv) Confirm Administered Dose 4 mg .ROUTE .STK-MED ONE Stop: 02/07/21 09:12 Propofol (Propofol 200 Mg/20 Ml Sdv) Confirm Administered Dose 200 mg .ROUTE .STK-MED ONE Stop: 02/07/21 09:13
[2021-02-07] MEDS ORDERED: Midazolam 1 MG/ML 2 ML SDV ONE (10:59)
[2021-02-07] MEDS ORDERED: cefOXitin 1 GM Vial ONE (11:16)
[2021-02-07] MEDS ORDERED: Sodium Chloride 0.9% 20 ML ONE (11:16)
[2021-02-07] MEDS ORDERED: Ketorolac 30 MG/ML SDV ONE (12:10)
--- NOTE | 2021-02-07 12:43 | PCM.OPNOTE ---
- General Post-Op/Procedure Note Date of Surgery/Procedure: 02/07/21 Operative Procedure(s): Hemorrhoidectomy Findings: Left anterior left posterior and right posterior hemorrhoidal column removed Pre Op Diagnosis: Grade IV hemorrhoid Post-Op Diagnosis: same Anesthesia Technique: Local, MAC, Spinal Primary Surgeon: Marli Bowman Fluid Replacement, Intraop: 1,000 EBL in mLs: 5 Condition: Good
--- NOTE | 2021-02-07 12:47 | PCM48HPAN ---
Post Anesthesia Note - EVALUATION WITHIN 48HRS OF ANESTHETIC Vital Signs in Normal Range: Yes Patient Participated in Evaluation: Yes Respiratory Function Stable: Yes Airway Patent: Yes Cardiovascular Function Stable: Yes Hydration Status Stable: Yes Pain Control Satisfactory: Yes Nausea and Vomiting Control Satisfactory: Yes Mental Status Recovered: Yes Vital Signs: Last Vital Signs Temp 36.8 C 02/07/21 10:40 Pulse 75 02/07/21 10:40 Resp 16 02/07/21 10:40 BP 109/75 02/07/21 10:40 Pulse Ox 97 02/07/21 10:40
--- NOTE | 2021-02-07 12:47 | PCM.POSTAN ---
POST ANESTHESIA ASSESSMENT - MENTAL STATUS Mental Status: Alert, Oriented - VITAL SIGNS Vital Signs: Last Vital Signs Temp 36.8 C 02/07/21 10:40 Pulse 75 02/07/21 10:40 Resp 16 02/07/21 10:40 BP 109/75 02/07/21 10:40 Pulse Ox 97 02/07/21 10:40 - RESPIRATORY Respiratory Status: Respiratory Rate WNL, Airway Patent, O2 Saturation Stable - CARDIOVASCULAR CV Status: Pulse Rate WNL, Blood Pressure Stable - GASTROINTESTINAL GI Status: No Symptoms - POST OP HYDRATION Hydration Status: Adequate & Stable
--- NOTE | 2021-02-07 14:10 | OR ---
SURGEON: MARLI BOWMAN MD DATE OF PROCEDURE: 02/07/2021 PREOPERATIVE DIAGNOSIS: Grade 4 hemorrhoids. POSTOPERATIVE DIAGNOSIS: Grade 4 hemorrhoids. PROCEDURE PERFORMED: 3-column hemorrhoidectomy. PRIMARY SURGEON: Marli Bowman MD ANESTHESIA: Spinal, local, MAC. FLUIDS: 1000 mL crystalloid. ESTIMATED BLOOD LOSS: 5 mL. FINDINGS: Left anterior, left posterior, and right posterior enlarged hemorrhoidal columns. COMPLICATIONS: None. INDICATIONS: The patient is a 36-year-old female who has grade 4 hemorrhoids that are symptomatic despite conservative therapy. I explained the need for hemorrhoidectomy. I explained the procedure, expected perioperative course, and the risks. She verbalized understanding and wishes to proceed. PROCEDURE IN DETAIL: The patient was brought into the OR and placed on the OR table in supine position. A time-out was completed verifying the patient's name, age, date of , allergies, and procedure to be performed. Spinal anesthesia was administered and the patient was placed in the left lateral decubitus position. Monitored anesthesia care was induced. The buttocks were taped and prepped in usual standard fashion. A digital rectal exam was performed. This showed 3 enlarged columns of hemorrhoids. There was one in the left anterior position, left posterior position, and right posterior position. A bivalve proctoscope was inserted in the anus. I started with the left anterior hemorrhoidal column. This was grasped with a Fabiana and elevated. I then used needle-tip cautery to excise this hemorrhoidal column. I then closed my mucosal defect using a 2-0 chromic suture. Within the anal canal, it was run in a locking position. As it transitioned to the anoderm, I transitioned to a simple stitch. This was stitched back on itself and the knot tied within the anal canal. The other 2 hemorrhoidal columns were excised and closed in similar fashion. At the end of the case, the suture lines appeared hemostatic. I circumferentially anesthetized the anoderm with Exparel. Perineal nerve blocks were performed as well. Lidocaine jelly was applied externally and 4x4 fluffs were placed over the anus. This was secured in place with mesh underwear. The patient tolerated the procedure well, and was transferred to the PACU in stable condition. ELVIS / GUNJAN /[id number]
[2021-02-07 14:48] VITALS: BP 97/65; PULSE 66
--- NOTE | 2021-02-09 13:53 | OR ---
SURGEON: ISELA SHARP MD DATE OF PROCEDURE: 02/07/2021 ADDENDUM: At the end of the hemorrhoidectomy case, the patient had a small 2 mm skin tag located on the left side of the anoderm. This was grasped with a pickup and excised using an 11 blade. Hemostasis was achieved with electrocautery. It was sent to Pathology, labeled as anal skin tag. ELVIS / GUNJAN /[id number]
== END 2021-02-07 14:05 | disposition home or self-care (01) ==
LOC: MW.SDS 09:45
PROVIDERS: ATTEND Surgery
DX: K64.3 Fourth degree hemorrhoids (principal); D23.5 Other benign neoplasm of skin of trunk; K64.4 Residual hemorrhoidal skin tags
CPT/HCPCS: 46260; 81025; 88304; 88305; J0131; J0694; J1100; J1885; J2250; J2400; J2405; J2704; J3010; J7120; 00902; J3490

== ENCOUNTER 2023-08-23 14:10 | Emergency (ER) | payer BC ==
[2023-08-23 14:23] VITALS: BP 118/75
[2023-08-23] MEDS: Sodium Chloride 0.9% 10 ML Syringe FLUSH PRN (15:10)
[2023-08-23] MEDS: Sodium Chloride 0.9% 2.5 ML Syringe FLUSH PRN (15:10)
[2023-08-23] MEDS: Sodium Chloride 0.9% 1,000 ML IV STA (15:10)
[2023-08-23] MEDS: Triamcinolone Acetonide 40 MG/ML 1 ML SDV IM STA (15:10)
[2023-08-23 15:12] LABS: BASOPHILS ABSOLUTE AUTO 0.01 K/uL (0.00-0.20); BASOPHILS PERCENT AUTO 0.1 % (0.0-1.0); EOSINOPHILS ABSOLUTE AUTO 0.03 K/uL (0.00-0.45); EOSINOPHILS PERCENT AUTO 0.4 % (0.0-6.0); HEMATOCRIT 40.5 % (37.0-47.0); HEMOGLOBIN 13.2 g/dL (12.0-16.0); IMMATURE GRAN ABSOLUTE AUTO 0.02 K/uL (0.00-0.05); IMMATURE GRAN PERCENT AUTO 0.3 % (0.0-0.4); LYMPHOCYTES ABSOLUTE AUTO 1.24 K/uL (1.00-4.80); LYMPHOCYTES PERCENT AUTO 16.9 % (24.0-44.0); MEAN CORPUSCULAR HEMOGLOBIN 30.1 pg (28.0-32.0); MEAN CORPUSCULAR HGB CONC 32.6 g/dL (32.0-36.0); MEAN CORPUSCULAR VOLUME 92.5 fL (83.0-99.0); MEAN PLATELET VOLUME 9.7 fL (9.4-12.3); MONOCYTES ABSOLUTE AUTO 0.49 K/uL (0.00-0.80); MONOCYTES PERCENT AUTO 6.7 % (0.0-8.0); NEUTROPHILS ABSOLUTE AUTO 5.53 K/uL (1.80-7.70); NEUTROPHILS PERCENT AUTO 75.6 % (41.0-71.0); PLATELET COUNT,PLT 188 K/uL (150-400); RED BLOOD CELL COUNT 4.38 M/uL (4.10-5.30); WHITE BLOOD CELL COUNT,WBC 7.32 K/uL (3.9-11.3)
[2023-08-23 15:40] LABS: A/G RATIO 1.2 (0.9-1.6); ALBUMIN 3.8 g/dL (3.4-5.0); BILIRUBIN TOTAL 0.3 mg/dL (0.2-1.0); CALCIUM 8.6 mg/dL (8.5-10.1); EST CRCL DRUG DOSING (CG) 63.1 mL/min; POTASSIUM,K 3.9 mmol/L (3.5-5.1)
[2023-08-23 15:49] LABS: CORONAVIRUS COVID-19 NAA NEGATIVE (NEGATIVE); INFLUENZA A NAA NEGATIVE (NEGATIVE); INFLUENZA B NAA POSITIVE (NEGATIVE); RESPIRATORY SYNCYTIAL VIR NAA NEGATIVE (NEGATIVE)
[2023-08-23 16:39] VITALS: PULSE 100
== END 2023-08-23 16:37 | disposition home or self-care (01) ==
LOC: MW.ED 14:10
DX: J10.1 Influenza due to other identified influenza virus with other respiratory manifestations (principal); H02.841 Edema of right upper eyelid; H02.842 Edema of right lower eyelid; Z79.899 Other long term (current) drug therapy
CPT/HCPCS: 0241U; 36415; 80053; 83690; 84484; 85025; 85379; 93005; 96360; 96372; 99285; J3301; J3490; J7030; 93010; 99283

== ENCOUNTER 2024-01-29 09:34 | Emergency (ER) | payer BC ==
[2024-01-29 10:32] LABS: BASOPHILS ABSOLUTE AUTO 0.02 K/uL (0.00-0.20); BASOPHILS PERCENT AUTO 0.4 % (0.0-1.0); EOSINOPHILS ABSOLUTE AUTO 0.11 K/uL (0.00-0.45); HEMATOCRIT 42.9 % (37.0-47.0); HEMOGLOBIN 14.5 g/dL (12.0-16.0); IMMATURE GRAN ABSOLUTE AUTO 0.01 K/uL (0.00-0.05); IMMATURE GRAN PERCENT AUTO 0.2 % (0.0-0.4); LYMPHOCYTES ABSOLUTE AUTO 2.27 K/uL (1.00-4.80); LYMPHOCYTES PERCENT AUTO 40.4 % (24.0-44.0); MEAN CORPUSCULAR HEMOGLOBIN 30.3 pg (28.0-32.0); MEAN CORPUSCULAR HGB CONC 33.8 g/dL (32.0-36.0); MEAN CORPUSCULAR VOLUME 89.6 fL (83.0-99.0); MEAN PLATELET VOLUME 9.9 fL (9.4-12.3); MONOCYTES ABSOLUTE AUTO 0.35 K/uL (0.00-0.80); MONOCYTES PERCENT AUTO 6.2 % (0.0-8.0); NEUTROPHILS ABSOLUTE AUTO 2.86 K/uL (1.80-7.70); NEUTROPHILS PERCENT AUTO 50.8 % (41.0-71.0); RED BLOOD CELL COUNT 4.79 M/uL (4.10-5.30); WHITE BLOOD CELL COUNT,WBC 5.62 K/uL (3.9-11.3)
[2024-01-29] MEDS: Sodium Chloride 0.9% 1,000 ML IV STA (10:33)
[2024-01-29] MEDS: LORazepam 2 MG/ML SDV IVPUSH STA (10:33)
[2024-01-29 10:49] LABS: APPEARANCE,URINE CLEAR; BILIRUBIN,URINE NEGATIVE (NEGATIVE); COLOR,URINE YELLOW; GLUCOSE,URINE NEGATIVE (NEGATIVE); KETONES,URINE NEGATIVE (NEGATIVE); LEUKOCYTE ESTERASE,URINE SMALL (NEGATIVE); NITRITE,URINE NEGATIVE (NEGATIVE); OCCULT BLOOD,URINE NEGATIVE (NEGATIVE); PROTEIN,URINE NEGATIVE (NEGATIVE); UROBILINOGEN,URINE 0.2 EU/dL (<2.0)
[2024-01-29 10:51] LABS: A/G RATIO 1.5 (0.9-1.6); ALBUMIN 4.7 g/dL (3.4-5.0); BILIRUBIN TOTAL 0.6 mg/dL (0.2-1.0); CALCIUM 9.6 mg/dL (8.5-10.1); CREATININE 0.9 mg/dL (0.6-1.0); EST CRCL DRUG DOSING (CG) 69.42 mL/min; POTASSIUM,K 4.6 mmol/L (3.5-5.1); PROTEIN TOTAL,TP 7.9 g/dL (6.4-8.2)
[2024-01-29 11:02] LABS: RBC,URINE 0-2 (0-2/HPF)
[2024-01-29 11:03] LABS: BACTERIA,URINE 2+ (NEGATIVE); EPITHELIAL CELLS,URINE FEW (NONE-FEW)
[2024-01-29 11:15] LABS: PLATELET COUNT,PLT 243 K/uL (150-400)
[2024-01-29] MEDS: Iopamidol 755 MG/ML 500 ML Multipack Bottle IVPUSH STA (11:28)
[2024-01-29 12:31] VITALS: BP 109/70; PULSE 96
== END 2024-01-29 12:27 | disposition home or self-care (01) ==
LOC: MW.ED 09:34
DX: R07.89 Other chest pain (principal); R82.71 Bacteriuria; Z75.8 Other problems related to medical facilities and other health care
CPT/HCPCS: 36415; 71275; 80053; 81001; 83690; 84484; 84703; 85025; 87086; 93005; 96361; 96374; 99285; J2060; J7030; Q9967

== ENCOUNTER 2024-05-10 06:51 | Day surgery (SDC) | payer BC ==
[2024-05-09 11:32] LABS: HEMATOCRIT 39.4 % (37.0-47.0); HEMOGLOBIN 12.9 g/dL (12.0-16.0); MEAN CORPUSCULAR HEMOGLOBIN 30.4 pg (28.0-32.0); MEAN CORPUSCULAR HGB CONC 32.7 g/dL (32.0-36.0); MEAN CORPUSCULAR VOLUME 92.9 fL (83.0-99.0); MEAN PLATELET VOLUME 9.7 fL (9.4-12.3); PLATELET COUNT,PLT 274 K/uL (150-400); RED BLOOD CELL COUNT 4.24 M/uL (4.10-5.30); WHITE BLOOD CELL COUNT,WBC 5.28 K/uL (3.9-11.3)
[2024-05-10] MEDS: Lactated Ringers 1,000 ML IV SCH (07:12)
[2024-05-10] MEDS ORDERED: fentaNYL 100 MCG/2 ML SDV ONE (07:13)
[2024-05-10] MEDS ORDERED: propofoL 50 ML ONE (07:13)
[2024-05-10] MEDS ORDERED: Albuterol 0.083% 2.5 MG/3 ML Neb Soln NEB PRN (07:17)
[2024-05-10] MEDS ORDERED: Ondansetron 4 MG/2 ML SDV IVPUSH PRN (07:17)
[2024-05-10] MEDS ORDERED: HYDROmorphone 1 MG/ML Syringe IVPUSH PRN (07:17)
[2024-05-10] MEDS ORDERED: Morphine 2 MG/ML SYRINGE IVPUSH PRN (07:17)
[2024-05-10] MEDS ORDERED: droPERidol 5 MG/2 ML SDV IVPUSH PRN (07:17)
[2024-05-10] MEDS ORDERED: fentaNYL 50 MCG/ML SDV IVPUSH PRN (07:17)
[2024-05-10] MEDS ORDERED: Phenylephrine HCl In 0.9% NaCl 1 MG/10 ML Syringe IVPUSH PRN (07:17)
[2024-05-10] MEDS ORDERED: Naloxone 0.4 MG/ML SDV IVPUSH PRN (07:17)
[2024-05-10] MEDS ORDERED: Metoclopramide 10 MG/2 ML SDV IVPUSH PRN (07:17)
[2024-05-10] MEDS: Scopalamine 1mg/3day Transdermal Patch TOP ONE (07:18)
[2024-05-10] MEDS ORDERED: Water For Injection, Sterile 20 ML ONE (07:19)
[2024-05-10] MEDS ORDERED: dexmedeTOMIDine HCl 200 MCG/2 ML SDV ONE (07:19)
[2024-05-10] MEDS ORDERED: Ondansetron 4 MG/2 ML SDV ONE (08:03)
[2024-05-10] MEDS ORDERED: Dexamethasone 4 MG/ML 5 ML MDV ONE (08:03)
[2024-05-10] MEDS ORDERED: Propofol 200 MG/20 ML SDV ONE (08:08)
[2024-05-10] MEDS ORDERED: Ketorolac 30 MG/ML SDV ONE (08:17)
[2024-05-10] MEDS ORDERED: ePHEDrine 50 MG/ML SDV ONE (08:19)
[2024-05-10 13:11] VITALS: BP 95/61; PULSE 83
== END 2024-05-10 09:35 | disposition home or self-care (01) ==
LOC: MW.SDS 06:51
PROVIDERS: ATTEND Obstetrics & Gynecology
DX: N84.0 Polyp of corpus uteri (principal); N92.0 Excessive and frequent menstruation with regular cycle; F41.9 Anxiety disorder, unspecified; F32.A Depression, unspecified; Z79.899 Other long term (current) drug therapy
CPT/HCPCS: 36415; 58300; 58558; 58579; 81025; 85027; A9270; C1729; J0131; J1100; J1885; J2405; J2704; J3010; J7120; 00952; J3490